=== PATIENT | female | born 2000 ===

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

== ENCOUNTER 2021-02-27 10:59 | Outpatient (REF) | payer OTHER, SELFPAY ==
[2021-02-27 12:50] LABS: COVID-19 Test Negative (Negative)
== END 2021-02-27 11:00 | disposition home or self-care (01) ==
LOC: HO.LAB 10:59
PROVIDERS: Visit Provider Internal Medicine
DX: Z20.822 Contact with and (suspected) exposure to COVID-19 (principal)
CPT/HCPCS: 36415; 87635; C9803

== ENCOUNTER 2021-05-20 02:47 | Emergency (ER) | payer OTHER, SELFPAY ==
[2021-05-20 03:14] VITALS: BP 107/68; PULSE 114; RESP 16; TEMP 36.8; O2SAT 98; BMI 21.7
[2021-05-20 04:58] LABS: Hematocrit 43.4 % (37.0-47.0); Hemoglobin 14.2 g/dl (12.0-16.0); Mean Corpuscular HGB Conc 32.7 g/dl (31.0-35.0); Mean Corpuscular Hemoglobin 29.5 pg (27.0-33.0); Mean Platelet Volume 9.6 fL (9.4-12.3); Platelet Count 385 X10*3/uL (160-400); Red Blood Count 4.82 X10*6/uL (4.20-5.50); Red Cell Distribution Width 12.2 % (11.0-16.0); White Blood Count 15.5 X10*3/uL (4.8-10.8)
[2021-05-20 05:17] LABS: Alanine Aminotransferase 12 U/L (0-31); Albumin Level 4.9 g/dL (3.5-5.0); Alkaline Phosphatase 68 U/L (39-117); Anion Gap 15 (12-20); Aspartate Amino Transferase 19 U/L (5-31); Bilirubin Total 0.9 mg/dL (0.0-1.0); Blood Urea Nitrogen 21 mg/dL (9-16); Calcium 9.6 mg/dL (8.4-10.2); Carbon Dioxide 20 mmol/L (22-29); Chloride 108 mmol/L (96-108); Creatinine Clr Calc Pharmacy 80.6; Estimated Glomerular Filt Rate > 60; Glucose Random 134 mg/dL (60-115); Potassium 3.9 mmol/L (3.3-5.1); Sodium 139 mmol/L (135-145)
[2021-05-20 06:10] LABS: HCG Quantitative < 2 mIU/mL
--- NOTE | 2021-05-20 08:24 | ED_ITS ---
HPI - Nausea/Vomiting/Diarrhea General Chief complaint: Abdominal Pain Stated complaint: Vomiting/Diarrhea Time Seen by Provider: 05/20/21 05:47 Source: patient Mode of arrival: ambulatory Limitations: no limitations History of Present Illness HPI Narrative: 21 y/o female presenting to the ER with acute onset of nausea, vomiting, diarrhea that started around 02:00 this morning. She states she was in her normal state of health yesterday and had a normal dinner. She woke up this morning at 02:00 with extreme nausea and has had several episodes of vomiting and diarrhea since. No blood in her stool or vomit. She has no abdominal pain. She reports some back pain from forceful vomiting. She has no known sick contacts and no one else at home is feeling ill. She denies any fever or chills, shortness of breath, chest pain, abdominal pain, urinary symptoms. She is not sure if she may be . MD elicited complaint: nausea, vomiting and diarrhea Onset (ago): hour(s) (6) Description of vomiting: food contents Description of diarrhea: watery Associated nausea: Yes Associated abdominal pain: No Location of pain: none Exacerbating factors: none Relieving factors: none Associated symptoms: denies other symptoms Related Data Previous Rx's Medication Instructions Recorded meclizine 25 mg tablet 25 mg PO TID PRN #21 tab 09/24/20 ondansetron 4 mg disintegrating 4 mg PO Q8H PRN #5 tab 05/20/21 tablet Allergies Allergy/AdvReac Type Severity Reaction Status Date / Time shrimp [SHRIMP] Allergy Mild RASH Verified 02/17/20 11:10 shrimp Allergy Unknown unknown Uncoded 10/28/19 00:00 Review of Systems Review of Systems: Constitutional: No Fever, No Chills ENT/Mouth: No sore throat, No Rhinorrhea, No Swallowing Difficulty Eyes: No vision changes Cardiovascular: No Chest Pain, No SOB, No Orthopnea, No Edema Respiratory: No Cough, No Sputum, No Wheezing, No dyspnea Gastrointestinal: + Nausea, + Vomiting, + Diarrhea, No abdominal Pain, No Hematochezia, No Melena Genitourinary: No Dysuria, No Urinary Frequency, No Hematuria Musculoskeletal: No joint pain, No Myalgias Skin: No Skin Lesions, No rash Neuro: No Weakness, No Numbness, No Dizziness, No Headache Psych: No Anxiety/Panic, No Depression Heme/Lymph: No Bruising, No Lymphadenopathy Endocrine: No Polyuria, No Polydipsia Gastrointestinal: Gastrointestinal: Reports nausea PMFSH Past Medical History Medical History (Updated 05/20/21 @ 12:09 by NAIN Adler) Asthma Irregular menses Family History Family History Mother HTN (hypertension) Father HTN (hypertension) Social History Social History Alcohol intake: never Advance Directives: No Gender identity: Female Physical Exam Vital Signs: Vital Signs: Last Vital Signs Temp 98.1 F 05/20/21 09:31 Pulse 120 H 05/20/21 09:31 Resp 17 05/20/21 09:31 BP 111/62 05/20/21 09:31 Pulse Ox 100 05/20/21 09:31 BMI result Body Mass Index 21.7 Appearance: Alert. Oriented X3. No acute distress. Eyes: Pupils equal, round and reactive to light. ENT: Pharynx normal. Neck: Normal inspection. Neck supple. CVS: Normal heart rate and rhythm. Pulses normal. Respiratory: No respiratory distress. Breath sounds normal. Abdomen: Soft and nontender. +BS x4 Skin: Skin warm and dry. Normal skin color. Normal skin turgor. No rashes. Extremities: No lower extremity edema. Neuro: Oriented X 3. No motor deficit. No sensory deficit. Course Course Course Narrative: 21-year-old female presents to the ER with 6 hours of nausea, vomiting, diarrhea. She reports 15 episodes of vomiting and diarrhea. She is feeling better at this time, no nausea. She is tolerating sips of Sprite. Her lab workup showing a leukocytosis of 15,500, most likely reactive in the setting of vomiting. She has no abdominal pain. Mild elevation of her BUN, may be slightly dehydrated. Will check UA and U preg. IV fluids and Zofran ordered. Suspect acute gastroenteritis. Will monitor. Reevaluation(s) Reevaluation #1: Patient tolerating p.o.. No presents vomiting this morning. Her urine is negative. Her urinalysis is not indicative of infection. At this time she is stable for discharge home for most likely gastroenteritis. Will send p.r.n. Zofran to her pharmacy. Discussed results and plan with patient who agrees with plan and dispo. Stable for DC. MDM - Nausea/Vomiting/Diarrhea Lab Data Result diagrams: 05/20/21 04:52 05/20/21 04:52 Labs: Lab Results 05/20/21 05/20/21 05/20/21 Range/Units 04:52 04:52 11:58 WBC 15.5 H (4.8-10.8) X10*3/uL RBC 4.82 (4.20-5.50) X10*6/uL Hgb 14.2 (12.0-16.0) g/dl Hct 43.4 (37.0-47.0) % MCV 90.0 (80.0-98.0) fL MCH 29.5 (27.0-33.0) pg MCHC 32.7 (31.0-35.0) g/dl RDW 12.2 (11.0-16.0) % Plt Count 385 (160-400) X10*3/uL MPV 9.6 (9.4-12.3) fL Absolute Nucleated RBC 0.000 (0.0-0.012) X10*3/uL Nucleated RBC % (auto) 0.0 (0.0-0.2) /100WBC Sodium 139 (135-145) mmol/L Potassium 3.9 (3.3-5.1) mmol/L Chloride 108 (96-108) mmol/L Carbon Dioxide 20 L (22-29) mmol/L Anion Gap 15 (12-20) BUN 21 H (9-16) mg/dL Creatinine 0.84 (0.5-1.4) mg/dL Estim Creat Clear Calc 80.6 Estimated GFR > 60 Random Glucose 134 H (60-115) mg/dL Calcium 9.6 (8.4-10.2) mg/dL Total Bilirubin 0.9 (0.0-1.0) mg/dL AST 19 (5-31) U/L ALT 12 (0-31) U/L Alkaline Phosphatase 68 (39-117) U/L Total Protein 8.0 (6.5-8.0) g/dL Albumin 4.9 (3.5-5.0) g/dL Beta HCG, Quant < 2 mIU/mL Urine Color YELLOW Urine Appearance CLEAR Urine pH 5.5 (5.0-8.0) Ur Specific [place] >= 1.030 H (1.005-1.025) Urine Protein NEG (NEG-TRACE) MG/DL Urine Glucose (UA) NEG (NEG) MG/DL Urine Ketones NEG (NEG) MG/DL Urine Blood 1+ H (NEG) Urine Nitrite NEG (NEG) Ur Leukocyte Esterase NEG (NEG) Urine Test (NEGATIVE) 05/20/21 Range/Units 11:58 WBC (4.8-10.8) X10*3/uL RBC (4.20-5.50) X10*6/uL Hgb (12.0-16.0) g/dl Hct (37.0-47.0) % MCV (80.0-98.0) fL MCH (27.0-33.0) pg MCHC (31.0-35.0) g/dl RDW (11.0-16.0) % Plt Count (160-400) X10*3/uL MPV (9.4-12.3) fL Absolute Nucleated RBC (0.0-0.012) X10*3/uL Nucleated RBC % (auto) (0.0-0.2) /100WBC Sodium (135-145) mmol/L Potassium (3.3-5.1) mmol/L Chloride (96-108) mmol/L Carbon Dioxide (22-29) mmol/L Anion Gap (12-20) BUN (9-16) mg/dL Creatinine (0.5-1.4) mg/dL Estim Creat Clear Calc Estimated GFR Random Glucose (60-115) mg/dL Calcium (8.4-10.2) mg/dL Total Bilirubin (0.0-1.0) mg/dL AST (5-31) U/L ALT (0-31) U/L Alkaline Phosphatase (39-117) U/L Total Protein (6.5-8.0) g/dL Albumin (3.5-5.0) g/dL Beta HCG, Quant mIU/mL Urine Color Urine Appearance Urine pH (5.0-8.0) Ur Specific [place] (1.005-1.025) Urine Protein (NEG-TRACE) MG/DL Urine Glucose (UA) (NEG) MG/DL Urine Ketones (NEG) MG/DL Urine Blood (NEG) Urine Nitrite (NEG) Ur Leukocyte Esterase (NEG) Urine Test NEGATIVE (NEGATIVE) Critical Care Time Critical Care Time Critical Care Time: No Discharge Plan Discharge Clinical Impression: Gastroenteritis Patient Disposition: Home, Self-Care Instructions: Gastroenteritis (DC) Additional Instructions: You lab workup today was largely unremarkable. Your urine test was negative for infection and . You most likely have a viral GI bug also known as gastroenteritis. Treatment is supportive care, symptoms usually resolve on their own in 48-72 hours. Recommend rest and plenty of oral hydration. Stick to a bland diet like soup and toast while you are not feeling well. Take the prescribed medication as needed for nausea. Recommend over the counter Pepto Bismol or Imodium for upset stomach and diarrhea. Follow up with your doctor as needed. If you develop new or worsening symptoms call 911 or come back to the ER for further evaluation. Prescriptions: New ondansetron 4 mg tablet,disintegrating 4 mg PO Q8H PRN (Reason: nausea and vomiting) Qty: 5 0RF No Action meclizine 25 mg tablet 25 mg PO TID PRN (Reason: dizziness) Qty: 21 0RF
[2021-05-20] MEDS: 0.9 % Sodium Chloride 1,000 ML 999 ML IVCONT ×2 (08:48→09:51)
[2021-05-20] MEDS: ondansetron HCL 4 MG/2 ML VIAL IVPUSH (08:49)
[2021-05-20] MEDS: Ketorolac Tromethamine 30 MG/ML VIAL IVPUSH (09:15)
[2021-05-20 09:31] VITALS: BP 111/62; PULSE 120; RESP 17; TEMP 36.7; O2SAT 100
--- NOTE | 2021-05-20 09:50 | PC.NURSE ---
nad, no pain or nausea, 2nd liter ns started as pt unable to urinate
[2021-05-20 12:09] LABS: Appearance Urine CLEAR; Color Urine YELLOW; Glucose Urine UA NEG (NEG); Leukocyte Esterase Urine NEG (NEG); Nitrite Urine NEG (NEG); PH 5.5 (5.0-8.0); Specific Gravity - Urine >= 1.030 (1.005-1.025); UACC Culture Trigger NO; Urine Blood 1+ (NEG); Urine Ketones NEG (NEG); Urine Protein NEG (NEG-TRACE)
[2021-05-20 12:11] LABS: UPreg QC Valid YES; Urine Pregnancy NEGATIVE (NEGATIVE)
[2021-05-20 12:24] LABS: WBC Urine 0-2 /HPF (0-4)
[2021-05-20 12:25] LABS: Squamous Epithelial Cell Urine 1+ /LPF
== END 2021-05-20 13:51 | disposition home or self-care (01) ==
PROVIDERS: Physician Assistant; Student in an Organized Health Care Education/Training Program; Emergency Provider Emergency Medicine Emergency Medical Services
DX: K52.9 Noninfective gastroenteritis and colitis, unspecified (principal); R11.2 Nausea with vomiting, unspecified
CPT/HCPCS: 36415; 80053; 81001; 81025; 84702; 85027; 96361; 96374; 96375; 99284; J1885; J2405

== ENCOUNTER 2022-07-01 15:24 | Outpatient (REF) | payer OTHER, SELFPAY ==
[2022-07-01 17:28] LABS: Alanine Aminotransferase 9 U/L (0-31); Albumin Level 4.5 g/dL (3.5-5.0); Alkaline Phosphatase 47 U/L (39-117); Anion Gap 8 (12-20); Aspartate Amino Transferase 16 U/L (5-31); Blood Urea Nitrogen 17 mg/dL (9-16); Calcium 9.7 mg/dL (8.4-10.2); Carbon Dioxide 30 mmol/L (22-29); Chloride 105 mmol/L (96-108); Estimated Glomerular Filt Rate > 60; Glucose Random 90 mg/dL (60-115); Sodium 139 mmol/L (135-145); Total Protein 7.1 g/dL (6.5-8.0)
[2022-07-01 17:44] LABS: TSH reflex Free T4 0.72 uIU/mL (0.32-4.0)
== END 2022-07-01 15:25 | disposition home or self-care (01) ==
LOC: HO.LAB 15:24
PROVIDERS: Visit Provider Nurse Practitioner Family
DX: Z13.29 Encounter for screening for other suspected endocrine disorder (principal); F41.1 Generalized anxiety disorder
CPT/HCPCS: 36415; 80053; 84443

== ENCOUNTER 2022-08-05 14:50 | Outpatient (REF) | payer OTHER, SELFPAY ==
[2022-08-05 15:02] LABS: MANUAL DIFF FLAG NO
[2022-08-05 15:50] LABS: Basophils Absolute Auto 0.1 X10*3/uL (0.0-0.2); Eosinophils Absolute Auto 0.1 X10*3/uL (0.0-0.4); Eosinophils Percent Auto 1.2 % (0-4); Hematocrit 37.5 % (37.0-47.0); Hemoglobin 12.6 g/dl (12.0-16.0); Imm Gran Abs Auto 0.03 X10*3/uL (0.00-0.03); Imm Gran Pct Auto 0.4 % (0.0-0.4); Lymphocytes Percent Auto 36.1 % (20-40); Mean Corpuscular HGB Conc 33.6 g/dl (31.0-35.0); Mean Corpuscular Hemoglobin 30.5 pg (27.0-33.0); Mean Corpuscular Volume 90.8 fL (80.0-98.0); Monocytes Absolute Auto 0.7 X10*3/uL (0.1-1.2); Monocytes Percent Auto 8.7 % (2-11); Neutrophils Absolute Auto 4.3 x10*3/uL (2.0-8.3); Neutrophils Percent Auto 52.6 % (45-73); Platelet Count 409 X10*3/uL (160-400); Red Blood Count 4.13 X10*6/uL (4.20-5.50); Red Cell Distribution Width 11.9 % (11.0-16.0); White Blood Count 8.3 X10*3/uL (4.8-10.8)
[2022-08-05 16:02] LABS: C Reactive Protein < 0.04 mg/dL (< or = 0.50)
[2022-08-05 17:33] LABS: Erythrocyte Sedimentation Rate 3 MM/HR (0-20)
[2022-08-06 04:58] LABS: HBS Num1 0.53 mIU/mL (0-7.99); HBc Num1 0.07 S/CO (0.00-0.79); HBsAGNum1 0.29 S/CO (0.00-0.99); HIV AB/AG Nonreactive (Nonreactive); HIV Num 1 0.07 S/CO (0.00-0.99); Hepatitis B Core Antibody Nonreactive (Nonreactive); Hepatitis B Surface Antigen Negative (Negative); ~HepC Num1 0.09 S/CO (0.00-0.79); ~Hepatitis A Antibody IgM Nonreactive (Nonreactive); ~Hepatitis B Surface Antibody NONREACTIVE (Nonreactive); ~Hepatitis C Antibody Nonreactive (Nonreactive)
== END 2022-08-05 14:51 | disposition home or self-care (01) ==
LOC: HO.LAB 14:50
PROVIDERS: PCP Nurse Practitioner Family; Visit Provider Nurse Practitioner Family
DX: Z11.4 Encounter for screening for human immunodeficiency virus [HIV] (principal); Z13.0 Encounter for screening for diseases of the blood and blood-forming organs and certain disorders involving the immune mechanism; R63.0 Anorexia
CPT/HCPCS: 36415; 85025; 85652; 86140; 86704; 86706; 86709; 86803; 87340; 87389

== ENCOUNTER 2022-10-01 09:51 | Outpatient (AMB) | payer OTHER, SELFPAY ==
[2022-10-01 09:53] VITALS: BP 100/62; BMI 21.5
--- NOTE | 2022-10-01 09:53 | MHC.OFFVIS ---
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 She is sexually active with her partner of 6 years. She has not been contraceptive thing. [facility] and [facility] gave her many patches to use for control and she has them at home and they are not an old prescription and she used to use the patch and liked it and just never bothered continuing with it. She is undecided if she wants to have a baby she at 1 point tells me that she does not think she would like to have a baby right now but if she got she would have the baby and deal with it. 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 She does appear little bit pale she is very alert and animated in her speech. She says that she and she has never had any high blood sugars or anything. She lives 5 minutes away from here. Not having any nurse manager concerns she just wanted to have her 1st Pap smear as she was instructed to do so. [facility] Medical History Asthma Irregular menses Potential exposure to STD Family History Mother HTN (hypertension) Father HTN (hypertension) Social History Housing: Apartment Alcohol intake: never Patient Tobacco Use Status: Never used Tobacco Tobacco use type: Cigarette e-Cigarette/Vaping Use: Never Used service: No Current occupational status: employed Gender identity: Female Cognitive needs: No Hearing needs: No Vision needs: Yes (glasses) Female Reproductive History Menstrual Age of Menarche: 15 Duration of menses: 3-5 days Date of last menstrual period: 09/18/22 control method: none Total pregnancies: 0 Physical Exam Vital Signs: Last Vital Signs BP 100/62 10/01/22 09:53 BMI result Body Mass Index 21.5 Const Other: Patient does appear pale and has circles under her eyes very alert and oriented and responsive to all questions however when she holds up her right hand she does have a slight tremor in it it is cold in this room but she says she is in cold she just does not feel well. Assessment & Plan Assessment & Plan (1) control counseling: Code(s): Z30.09 - Encounter for other general counseling and advice on contraception Plan Discussed patient's intention about conception versus contraception at the initial part of the visit and her periods and desires for this visit she has the control [facility] and she thinks she would like to start them and so I re instructed her on how to start them with her next period and how to use them to by changing the patch every week for 3 weeks and then have the patch off for 1 week and then restarting I also discussed how to make them stick on her skin so she does not have them come off. Given that she does not feel well and she was scheduled for her very 1st Pap smear I recommend that she actually go home and eat something or perhaps pick something up at the cafeteria downstairs and reschedule this annual exam there is not a particular sousa to have her 1st Pap and it can be done any time in the next few weeks or even a month or so. The majority of the visit was spent discussing how she may come to a moment of clarity about whether not she desires a at this time or not and then choosing to act accordingly. It is her choice. We will see her again for her 1st annual exam and Pap I gave her water but I did not have anything to offer her to eat. There was evidence of a slightly elevated blood sugar in a past lab but the repeat random blood sugar was 90. And recent CBC did not reveal anemia. Coding Level of Care Code Est Pt Level 3 (81783) Diagnoses control counseling Z30.09
== END 2022-10-01 11:10 | disposition left against medical advice (07) ==
LOC: HO.HWS 09:51
PROVIDERS: PCP Nurse Practitioner Family; Visit Provider Advanced Practice Midwife
DX: Z30.09 Encounter for other general counseling and advice on contraception (principal)
CPT/HCPCS: 99213

== ENCOUNTER → 2022-10-01 09:51 | Outpatient (BNVA) | payer OTHER, SELFPAY | PROVIDERS: PCP Nurse Practitioner Family; Visit Provider Advanced Practice Midwife | DX: Z30.09 Encounter for other general counseling and advice on contraception (principal) | CPT/HCPCS: 99212 ==

== ENCOUNTER 2022-10-01 18:03 | Emergency (ER) | payer OTHER, SELFPAY ==
[2022-10-01 18:25] VITALS: BP 112/74; PULSE 88; RESP 17; TEMP 35.7; O2SAT 97; BMI 21.4
--- NOTE | 2022-10-01 18:27 | ED.GENADULT ---
HPI - General Adult General Chief complaint: General Medical Stated complaint: vomiting, R side facial pain, chills Time Seen by Provider: 10/01/22 21:00 Source: patient Mode of arrival: ambulatory Limitations: no limitations History of Present Illness HPI narrative: Patient comes to the emergency room complaining of nausea and vomiting that started today. Patient states that she has been able to keep fluids down and no longer is nauseous or vomiting. Patient also complaining of right-sided facial pain the patient denies any trauma, no ear pain, tooth pain, no headache. Related Data Previous Rx's Medication Instructions Recorded ondansetron 4 mg disintegrating 4 mg PO Q6H PRN nausea and 10/01/22 tablet vomiting #14 tabs Allergies Allergy/AdvReac Type Severity Reaction Status Date / Time shrimp [SHRIMP] Allergy Mild RASH Verified 10/01/22 09:56 shrimp Allergy Unknown unknown Uncoded 10/01/22 09:56 Review of Systems Review of Systems: Constitutional : No Weight loss, No Fever, complaining of occasional Chills, No Night Sweats, , complaining of diffuse generalized malaise ENT/Mouth : No Hearing loss, No Ear Pain, No Nasal Congestion, No Sinus Pain, No Hoarseness, No sore throat, No Rhinorrhea, No Swallowing Difficulty Eyes: No Eye Pain, No Swelling, No Redness, No Foreign Body, No Discharge, No Vision Changes Cardiovascular : No Chest Pain, No SOB, No Dyspnea on Exertion, No Orthopnea, No Edema, No Palpitations Respiratory : No Cough, No Sputum, No Wheezing, No Smoke Exposure, No Dyspnea Gastrointestinal : Complaining of nausea and vomiting now, No Diarrhea, No Constipation, No abdominal Pain, No Hematochezia, No Melena Genitourinary : no irregular bleeding, No Dysuria, No Urinary Frequency, No Hematuria, No Urinary Incontinence, No Urgency, No Flank Pain, No Urinary Flow Changes, No Hesitancy Musculoskeletal : No joint pain, No Myalgias, No Joint Swelling Skin : No Skin Lesions, No rash Neuro : No Weakness, No Numbness, No Paresthesias, No Loss of Consciousness, No Dizziness, No Headache Psych : No Anxiety/Panic, No Depression, No SI/HI/AH/VH, No Social Issues, Heme/Lymph: No Bruising, No Bleeding,No Lymphadenopathy Endocrine : No Polyuria, No Polydipsia, No Temperature Intolerance PMFSH Past Medical History Medical History Asthma Irregular menses Potential exposure to STD Family History Family History Mother HTN (hypertension) Father HTN (hypertension) Social History Social History Housing: Apartment Alcohol intake: never Patient Tobacco Use Status: Never used Tobacco Tobacco use type: Cigarette e-Cigarette/Vaping Use: Never Used Advance Directives: No Advance Directives Information Provided: Yes service: No Current occupational status: employed Gender identity: Female Cognitive needs: No Hearing needs: No Vision needs: Yes (glasses) Physical Exam ED Vital Signs: Vital Signs - 24 hr 10/01/22 18:25 Temperature 96.2 F L Pulse Rate 88 Respiratory Rate 17 Blood Pressure 112/74 Pulse Oximetry 97 Oxygen Delivery Method Room Air BMI result Body Mass Index 21.4 Const Other: Appearance: Alert. Oriented X3. No acute distress. Well-appearing Eyes: Pupils equal, round and reactive to light. ENT: Pharynx normal. Normal dentition, no abscesses in the gums or oropharynx Neck: Normal inspection. Neck supple. No lymph nodes noted. No crepitus CVS: Normal heart rate and rhythm. Pulses normal. Normal S1 and S2 Respiratory: No respiratory distress. Breath sounds normal. No Wheezing. No rales Abdomen: Soft and nontender. No rigidity. No distention. Skin: Skin warm and dry. Normal skin color. Normal skin turgor. Extremities: No lower extremity edema. No Lacerations. No Rash Neuro: Oriented X 3. No motor deficit. No sensory deficit. Moving all extremities. No slurred speech. CN 2 through 12 grossly intact Psych: calm, cooperative, normal affect Course Course Course Narrative: This is an RME: Additional HPI, ROS, PE not included below will be deferred to primary provider. This is a 18, with a hx of , presenting to the emergency department with a complaint of right sided headache x 1 week and vomiting 7 times today. Reports chance of . No urinary symptoms. No chest pain, shortness of breath. 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 Plan: Labs, UA COVID, Flu Medications Administered Discontinued Medications Generic Name Dose Route Start Last Admin Trade Name Merlyn PRN Reason Stop Dose Admin Ibuprofen 600 mg 10/01/22 21:45 10/01/22 21:51 Ibuprofen 600 Mg Tablet PO 10/01/22 21:46 600 mg ONCE ONE Administration Medical Decision Making Medical Decision Making [facility] Narrative: -patient's hematology and chemistry are unremarkable -urinalysis pending -patient likely having a viral illness -hCG negative -urinalysis negative Differential Diagnosis Differential Diagnoses: The differential diagnosis associated with the presentation includes (UTI, , viral illness) Lab Data 10/01/22 18:46 10/01/22 18:46 Labs: Lab Results 10/01/22 10/01/22 10/01/22 Range/Units 18:46 18:46 18:46 WBC 9.3 (4.8-10.8) X10*3/uL RBC 4.41 (4.20-5.50) X10*6/uL Hgb 13.3 (12.0-16.0) g/dl Hct 40.2 (37.0-47.0) % MCV 91.2 (80.0-98.0) fL MCH 30.2 (27.0-33.0) pg MCHC 33.1 (31.0-35.0) g/dl RDW 11.7 (11.0-16.0) % Plt Count 354 (160-400) X10*3/uL MPV 9.5 (9.4-12.3) fL Immature Gran % (Auto) 0.3 (0.0-0.4) % Neut % (Auto) 66.7 (45-73) % Lymph % (Auto) 25.4 (20-40) % Pierce % (Auto) 6.8 (2-11) % Eos % (Auto) 0.3 (0-4) % Baso % (Auto) 0.5 (0-2) % Lymph # (Auto) 2.4 (1.2-4.9) X10*3/uL Pierce # (Auto) 0.6 (0.1-1.2) X10*3/uL Eos # (Auto) 0.0 (0.0-0.4) X10*3/uL Baso # (Auto) 0.1 (0.0-0.2) X10*3/uL Abs Immat Gran (auto) 0.03 (0.00-0.03) X10*3/uL Absolute Neuts (auto) 6.2 (2.0-8.3) x10*3/uL Absolute Nucleated RBC 0.000 (0.0-0.012) X10*3/uL Nucleated RBC % (auto) 0.0 (0.0-0.2) /100WBC Sodium 139 (135-145) mmol/L Potassium 4.0 (3.3-5.1) mmol/L Chloride 105 (96-108) mmol/L Carbon Dioxide 24 (22-29) mmol/L Anion Gap 14 (12-20) BUN 13 (9-16) mg/dL Creatinine 0.64 (0.5-1.4) mg/dL Estim Creat Clear Calc 104.9 Estimated GFR > 60 Random Glucose 118 H (60-115) mg/dL Calcium 10.0 (8.4-10.2) mg/dL Magnesium 1.8 (1.6-2.6) mg/dL Total Bilirubin 1.0 (0.0-1.0) mg/dL Direct Bilirubin 0.3 (0.0-0.5) mg/dL AST 19 (5-31) U/L ALT 12 (0-31) U/L Alkaline Phosphatase 49 (39-117) U/L Total Protein 7.7 (6.5-8.0) g/dL Albumin 4.6 (3.5-5.0) g/dL Beta HCG, Quant < 2 mIU/mL Urine Color Urine Appearance Urine pH (5.0-9.0) Ur Specific [place] (1.005-1.025) Urine Protein (Neg-Trace) mg/dL Urine Glucose (UA) (Negative) mg/dL Urine Ketones (Negative) mg/dL Urine Blood (Negative) Urine Nitrite (Negative) Ur Leukocyte Esterase (Negative) Urine Test (NEGATIVE) COVID-19 (JOHN) (Negative) COVID-19 Clin Com Influenza Type A (JOSE RAUL) (Negative) Influenza Type B (JOSE RAUL) (Negative) Influenza A & B Note 10/01/22 10/01/22 10/01/22 Range/Units 18:46 18:47 21:14 WBC (4.8-10.8) X10*3/uL RBC (4.20-5.50) X10*6/uL Hgb (12.0-16.0) g/dl Hct (37.0-47.0) % MCV (80.0-98.0) fL MCH (27.0-33.0) pg MCHC (31.0-35.0) g/dl RDW (11.0-16.0) % Plt Count (160-400) X10*3/uL MPV (9.4-12.3) fL Immature Gran % (Auto) (0.0-0.4) % Neut % (Auto) (45-73) % Lymph % (Auto) (20-40) % Pierce % (Auto) (2-11) % Eos % (Auto) (0-4) % Baso % (Auto) (0-2) % Lymph # (Auto) (1.2-4.9) X10*3/uL Pierce # (Auto) (0.1-1.2) X10*3/uL Eos # (Auto) (0.0-0.4) X10*3/uL Baso # (Auto) (0.0-0.2) X10*3/uL Abs Immat Gran (auto) (0.00-0.03) X10*3/uL Absolute Neuts (auto) (2.0-8.3) x10*3/uL Absolute Nucleated RBC (0.0-0.012) X10*3/uL Nucleated RBC % (auto) (0.0-0.2) /100WBC Sodium (135-145) mmol/L Potassium (3.3-5.1) mmol/L Chloride (96-108) mmol/L Carbon Dioxide (22-29) mmol/L Anion Gap (12-20) BUN (9-16) mg/dL Creatinine (0.5-1.4) mg/dL Estim Creat Clear Calc Estimated GFR Random Glucose (60-115) mg/dL Calcium (8.4-10.2) mg/dL Magnesium (1.6-2.6) mg/dL Total Bilirubin (0.0-1.0) mg/dL Direct Bilirubin (0.0-0.5) mg/dL AST (5-31) U/L ALT (0-31) U/L Alkaline Phosphatase (39-117) U/L Total Protein (6.5-8.0) g/dL Albumin (3.5-5.0) g/dL Beta HCG, Quant mIU/mL Urine Color Yellow Urine Appearance Cloudy Urine pH 7.0 (5.0-9.0) Ur Specific [place] 1.020 (1.005-1.025) Urine Protein Negative (Neg-Trace) mg/dL Urine Glucose (UA) Negative (Negative) mg/dL Urine Ketones 15 (Negative) mg/dL Urine Blood Negative (Negative) Urine Nitrite Negative (Negative) Ur Leukocyte Esterase Negative (Negative) Urine Test (NEGATIVE) COVID-19 (JOHN) Negative (Negative) COVID-19 Clin Com See Note Influenza Type A (JOSE RAUL) Negative (Negative) Influenza Type B (JOSE RAUL) Negative (Negative) Influenza A & B Note See Note 10/01/22 Range/Units 21:14 WBC (4.8-10.8) X10*3/uL RBC (4.20-5.50) X10*6/uL Hgb (12.0-16.0) g/dl Hct (37.0-47.0) % MCV (80.0-98.0) fL MCH (27.0-33.0) pg MCHC (31.0-35.0) g/dl RDW (11.0-16.0) % Plt Count (160-400) X10*3/uL MPV (9.4-12.3) fL Immature Gran % (Auto) (0.0-0.4) % Neut % (Auto) (45-73) % Lymph % (Auto) (20-40) % Pierce % (Auto) (2-11) % Eos % (Auto) (0-4) % Baso % (Auto) (0-2) % Lymph # (Auto) (1.2-4.9) X10*3/uL Pierce # (Auto) (0.1-1.2) X10*3/uL Eos # (Auto) (0.0-0.4) X10*3/uL Baso # (Auto) (0.0-0.2) X10*3/uL Abs Immat Gran (auto) (0.00-0.03) X10*3/uL Absolute Neuts (auto) (2.0-8.3) x10*3/uL Absolute Nucleated RBC (0.0-0.012) X10*3/uL Nucleated RBC % (auto) (0.0-0.2) /100WBC Sodium (135-145) mmol/L Potassium (3.3-5.1) mmol/L Chloride (96-108) mmol/L Carbon Dioxide (22-29) mmol/L Anion Gap (12-20) BUN (9-16) mg/dL Creatinine (0.5-1.4) mg/dL Estim Creat Clear Calc Estimated GFR Random Glucose (60-115) mg/dL Calcium (8.4-10.2) mg/dL Magnesium (1.6-2.6) mg/dL Total Bilirubin (0.0-1.0) mg/dL Direct Bilirubin (0.0-0.5) mg/dL AST (5-31) U/L ALT (0-31) U/L Alkaline Phosphatase (39-117) U/L Total Protein (6.5-8.0) g/dL Albumin (3.5-5.0) g/dL Beta HCG, Quant mIU/mL Urine Color Urine Appearance Urine pH (5.0-9.0) Ur Specific [place] (1.005-1.025) Urine Protein (Neg-Trace) mg/dL Urine Glucose (UA) (Negative) mg/dL Urine Ketones (Negative) mg/dL Urine Blood (Negative) Urine Nitrite (Negative) Ur Leukocyte Esterase (Negative) Urine Test NEGATIVE (NEGATIVE) COVID-19 (JOHN) (Negative) COVID-19 Clin Com Influenza Type A (JOSE RAUL) (Negative) Influenza Type B (JOSE RAUL) (Negative) Influenza A & B Note Discharge Plan Discharge Clinical Impression: Viral illness, Nausea & vomiting Patient Disposition: Home, Self-Care Instructions: Viral Syndrome (ED) Additional Instructions: Please follow-up with your primary care physician tomorrow. If you have any worsening or new symptoms, please return to the emergency room or call 911 Prescriptions: New ondansetron 4 mg tablet,disintegrating 4 mg PO Q6H PRN (Reason: nausea and vomiting) Qty: 14 0RF Stand Alone Forms: Work/School Release Interventions: ED Discharge Assessment Last Done: 10/01/22 22:59 Discharge Date/Time: 10/01/22 23:00
[2022-10-01 18:51] LABS: MANUAL DIFF FLAG NO
[2022-10-01 18:53] LABS: Basophils Absolute Auto 0.1 X10*3/uL (0.0-0.2); Basophils Percent Auto 0.5 % (0-2); Eosinophils Percent Auto 0.3 % (0-4); Hematocrit 40.2 % (37.0-47.0); Hemoglobin 13.3 g/dl (12.0-16.0); Imm Gran Abs Auto 0.03 X10*3/uL (0.00-0.03); Imm Gran Pct Auto 0.3 % (0.0-0.4); Lymphocytes Absolute Auto 2.4 X10*3/uL (1.2-4.9); Lymphocytes Percent Auto 25.4 % (20-40); Mean Corpuscular HGB Conc 33.1 g/dl (31.0-35.0); Mean Corpuscular Hemoglobin 30.2 pg (27.0-33.0); Mean Corpuscular Volume 91.2 fL (80.0-98.0); Mean Platelet Volume 9.5 fL (9.4-12.3); Monocytes Absolute Auto 0.6 X10*3/uL (0.1-1.2); Monocytes Percent Auto 6.8 % (2-11); Neutrophils Absolute Auto 6.2 x10*3/uL (2.0-8.3); Neutrophils Percent Auto 66.7 % (45-73); Platelet Count 354 X10*3/uL (160-400); Red Blood Count 4.41 X10*6/uL (4.20-5.50); Red Cell Distribution Width 11.7 % (11.0-16.0); White Blood Count 9.3 X10*3/uL (4.8-10.8)
[2022-10-01 19:11] LABS: Alanine Aminotransferase 12 U/L (0-31); Albumin Level 4.6 g/dL (3.5-5.0); Alkaline Phosphatase 49 U/L (39-117); Anion Gap 14 (12-20); Aspartate Amino Transferase 19 U/L (5-31); Bilirubin Direct 0.3 mg/dL (0.0-0.5); Blood Urea Nitrogen 13 mg/dL (9-16); Carbon Dioxide 24 mmol/L (22-29); Chloride 105 mmol/L (96-108); Creatinine Clr Calc Pharmacy 104.9; Estimated Glomerular Filt Rate > 60; Glucose Random 118 mg/dL (60-115); Magnesium 1.8 mg/dL (1.6-2.6); Sodium 139 mmol/L (135-145); Total Protein 7.7 g/dL (6.5-8.0)
[2022-10-01 19:13] LABS: COVID-19 Test Negative (Negative); IDNOW Serial# 08D9AD1C
[2022-10-01 19:13] LABS: IDNOW Serial# BCCEAD1C; Influenza A Negative (Negative); Influenza B2 Negative (Negative)
[2022-10-01 19:19] LABS: HCG Quantitative < 2 mIU/mL
[2022-10-01 21:27] LABS: Appearance Urine Cloudy; Color Urine Yellow; Glucose Urine UA Negative (Negative); Leukocyte Esterase Urine Negative (Negative); Nitrite Urine Negative (Negative); Urine Blood Negative (Negative); Urine Ketones 15 mg/dL (Negative); Urine Protein Negative (Neg-Trace)
[2022-10-01 21:29] LABS: UPreg QC Valid YES; Urine Pregnancy NEGATIVE (NEGATIVE)
[2022-10-01] MEDS: Ibuprofen 600 MG TABLET PO (21:51)
--- NOTE | 2022-10-01 21:54 | PC.NURSE ---
pt medicated per MAr for 9.510 right sided face pain
--- NOTE | 2022-10-01 22:59 | PC.NURSE ---
pt reports pain is much better.
[2022-10-02 12:31] LABS: CT PCR NOT DETECTED (Not Detect.); NG PCR NOT DETECTED (Not Detect.)
== END 2022-10-01 23:00 | disposition home or self-care (01) ==
PROVIDERS: Physician Assistant Medical; Emergency Provider Emergency Medicine; PCP Nurse Practitioner Family
DX: B34.9 Viral infection, unspecified (principal); R11.2 Nausea with vomiting, unspecified; Z20.822 Contact with and (suspected) exposure to COVID-19; Z20.828 Contact with and (suspected) exposure to other viral communicable diseases; Z79.899 Other long term (current) drug therapy
CPT/HCPCS: 0353U; 80048; 80076; 81003; 81025; 83735; 84702; 85025; 87150; 87502; 87635; 99283

== ENCOUNTER 2022-10-06 07:09 | Outpatient (AMB) | payer OTHER, SELFPAY ==
[2022-10-06 07:13] VITALS: BP 104/58; PULSE 75; O2SAT 98; BMI 21.3
--- NOTE | 2022-10-06 07:13 | A.OFFPC_ITS ---
Vital Signs 10/06/22 07:13 Height 5 ft 1 in Weight 113 lb BMI 21.3 BP 104/58 L Blood Pressure Location Lt brachial Position Sitting Pulse 75 Pulse Source Pulse Oximeter Pulse Oximetry (%) 98 Oxygen Delivery Method Room Air Intake Visit Reasons: 10/01/22 [facility] pain on right side of face Machine Maintenance Required: No Accompanied by: Self / Same As Patient Allergies shrimp [SHRIMP] Allergy (Mild, Verified 10/06/22 07:54) RASH shrimp Allergy (Unknown, Uncoded 10/06/22 07:54) unknown Medication List - Last Reconciled 10/06/22 by Beth Roque MD No Known Home Meds Tobacco use date assessed: 08/05/22 Dental Screening Dental Screen Date: 10/06/22 Did you have a dental visit in the last 12 months?: Yes Did you have a dental problem in the last 6 months where you did not have access to dental care?: No Was dental information given to patient?: Patient has dentist HPI HPI Comments History of Present Illness Details This is a 22-year-old female that comes today as ER discharge follow-up with discharge date 10/01/2022 due to facial pain in the right side of the face associated with nausea and vomiting that happened the day that she went to the hospital and resolve with ibuprofen and ondansetron for nausea. 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 Facial pain associated with nausea and vomiting started this morning again. No sinus tenderness. She said that when she was 3 years old a wall fell in her right side of the face. She has no facial deformities. [facility] Medical History Asthma Irregular menses Potential exposure to STD Family History Mother HTN (hypertension) Father HTN (hypertension) Social History Housing: Apartment Alcohol intake: never Patient Tobacco Use Status: Never used Tobacco Tobacco use type: Cigarette e-Cigarette/Vaping Use: Never Used service: No Current occupational status: employed Gender identity: Female Cognitive needs: No Hearing needs: No Vision needs: Yes (glasses) Female Reproductive History Menstrual Age of Menarche: 15 Questionnaire PHQ-9 Over the last 2 weeks, how often have you been bothered by any of the following problems? 1. Little interest or pleasure in doing things: not at all 2. Feeling down, depressed, or hopeless: not at all 3. Trouble falling or staying asleep, or sleeping too much: not at all 4. Feeling tired or having little energy: not at all 5. Poor appetite or overeating: not at all 6. Feeling bad about yourself - or that you are a failure or have let yourself or your family down: not at all 7. Trouble concentrating on things, such as reading the newspaper or watching television: not at all 8. Moving or speaking so slowly that other people could have noticed. Or the opposite - being so fidgety or restless that you have been moving around a lot more than usual: not at all 9. Thoughts that you would be better off or of hurting yourself in some way: not at all Total score: 0 Depression Screening Interpretation: Negative 73321 - PHQ-9 Billing: Yes Source: Developed by Drs. Shaun Wynne, Claire Sutton, Santi Berumen and colleagues, with an educational michael from [employer]. Thrive Questionnaire Date Thrive assessed: 08/05/22 AUDIT C Alcohol Use Questionnaire (AUDIT-C) 1. How often do you have a drink containing alcohol?: Never 3. How often do you have six or more drinks on one occasion?: Never Total Score: 0 AMBAR-7 AMB Questionnaire AMBAR-7 Date AMBAR - 7 assessed: 08/05/22 Source: Developed by Drs. Shaun Wynne, Claire Sutton, Santi Berumen and colleagues, with an educational michael from [employer]. Review of Systems Const All systems reviewed & are unremarkable except as noted in HPI and below Reports headache(s) Eyes Reports no additional complaints, Denies change in vision and Denies other v isual disturbances ENT Reports headache(s) Card Denies chest pain at rest, Denies chest pain with activity, Denies edema, Denies irregular heart rhythm, Denies claudication, Denies dyspnea, Denies dyspnea on exertion, Denies orthopnea, Denies paroxysmal nocturnal dyspnea and Denies slow heart rate Resp Denies cough, Denies dyspnea and Denies dyspnea on exertion GI Denies abdominal pain, Denies change in bowel habits, Denies excessive flatus, Reports nausea and Reports vomiting Denies urinary incontinence, Denies urinary hesitancy and Denies urinary urgency Musc Denies abnormal gait, Denies atrophy, Denies deformity and Denies limited range of motion Skin/Breast Denies bleeding lesions, Denies changing lesions and Denies rash Neuro Denies abnormal gait, Reports headache(s) and Denies lack of coordination Physical exam (Primary Care) Vital Signs: Last Vital Signs Pulse 75 10/06/22 07:13 BP 104/58 L 10/06/22 07:13 Pulse Ox 98 10/06/22 07:13 Oxygen Delivery Method Room Air 10/06/22 07:13 BMI result Body Mass Index 21.3 Tobacco/Smoking Status: Tobacco use Status Tobacco use date assessed 08/05/22 10/06/22 07:18 Patient Tobacco Use Status Never used Tobacco 10/06/22 07:18 Tobacco use type Cigarette 10/06/22 07:18 e-Cigarette/Vaping Use Never Used 10/06/22 07:18 PHQ-9: PHQ-9 Score PHQ-9: Total score 0 10/06/22 08:36 Depression Screening Interpretation: Negative Thrive Assessment: Date of Thrive Assessment Date Thrive assessed 08/05/22 10/06/22 07:18 Eyes General: appearance normal, both eyes and all related structures Eyelids: Yes eyelids normal Conjunctivae: conjunctivae normal Neck Neck: Yes normal visual inspection and Yes supple Resp Effort & Inspection: normal respiratory effort Auscultation: clear to auscultation bilaterally Cardio Jugular venous distension: no JVD Rate: regular rate Rhythm: regular rhythm Heart sounds: S1 normal heart sound present and S2 normal heart sound present Extrem General: Yes full ROM Assessment and Plan Assessment & Plan (1) Hospital discharge follow-up: Code(s): Z09 - Encounter for follow-up examination after completed treatment for conditions other than malignant neoplasm Plan: Discharge date 10/01/2022 due to facial pain associated with nausea and vomiting. Resolve with ibuprofen and ondansetron. Restarted today. Will give naproxen and sumatriptan for facial pain. (2) Facial pain: Code(s): R51.9 - Headache, unspecified Plan: X-ray of sinus ordered. Start naproxen and sumatriptan (3) Nausea & vomiting: Code(s): R11.2 - Nausea with vomiting, unspecified Plan: Continue ondansetron as needed Orders: Orders XR sinus min 3V Today R51.9 - Headache, unspecified Medications: New sumatriptan succinate do not exceed 8 doses per 24 hrs 25 mg PO Q2-4H 30 days PRN 9 tabs 2RF migraine headache naproxen 500 mg PO BID 7 days 14 tabs 0RF ondansetron 4 mg PO Q8H 5 days PRN 10 tabs 0RF nausea and vomiting Coding Level of Care Code TCM Mod MDM <= 7 Days Diagnoses Hospital discharge follow-up Z09 Facial pain R51.9 Nausea & vomiting R11.2 Time Spent (min) 19
== END 2022-10-06 08:07 | disposition home or self-care (01) ==
PROVIDERS: PCP Nurse Practitioner Family; Visit Provider Internal Medicine
DX: R51.9 Headache, unspecified (principal); R11.2 Nausea with vomiting, unspecified; Z09 Encounter for follow-up examination after completed treatment for conditions other than malignant neoplasm
CPT/HCPCS: 99214

== ENCOUNTER 2022-10-06 08:16 | Outpatient (REF) | payer OTHER, SELFPAY ==
--- NOTE | ~2022-10-06 | XR_ITS ---
EXAMINATION: XR SINUSES CLINICAL INFORMATION: Headache COMPARISON: None available. TECHNIQUE: 3 views of the sinuses were obtained. FINDINGS: Paranasal sinuses appear clear without air-fluid levels. No fractures are identified. No radiodense foreign bodies. Mastoid air cells appear normal. XR/XR sinus min 3V IMPRESSION: Unremarkable examination.
== END 2022-10-06 08:17 | disposition home or self-care (01) ==
LOC: HO.XRAY 08:16
PROVIDERS: PCP Nurse Practitioner Family; Visit Provider Internal Medicine
DX: R51.9 Headache, unspecified (principal)
CPT/HCPCS: 70220

== ENCOUNTER 2022-10-16 13:41 | Outpatient (AMB) | payer OTHER, SELFPAY ==
[2022-10-16 13:43] VITALS: BP 98/62; PULSE 81; O2SAT 99; BMI 21.1
--- NOTE | 2022-10-16 13:43 | MHC.PC.OV ---
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 Accompanied by: Self / Same As Patient Allergies shrimp [SHRIMP] Allergy (Mild, Verified 10/16/22 13:43) RASH shrimp Allergy (Unknown, Uncoded 10/06/22 07:54) unknown Tobacco use date assessed: 10/16/22 Dental Screening Dental Screen Date: 10/16/22 Did you have a dental visit in the last 12 months?: Yes Did you have a dental problem in the last 6 months where you did not have access to dental care?: No Was dental information given to patient?: Patient has dentist HPI HPI Comments History of Present Illness Details 22-year-old female past medical history significant for generalized anxiety and facial pain. Patient last seen 2 weeks ago for hospital discharge follow-up was started naproxen and sumtriptan for nausea and facial pain. Patient presents today for follow up visit. Patient reports continues to have intermittent right sided facial pressure, patient states take her naproxene and sumatriptan and sometimes it helps and sometimes it doesn't alleviate her pain. Denies pain at this time. Patient advised if pain re-occurs to follow up for further evaluation. He in the buspirone for anxiety, denying any feelings of anxiety at this time. Does not feel the need for any medication or referral to counseling. [facility] Medical History Asthma Irregular menses Potential exposure to STD Family History Mother HTN (hypertension) Father HTN (hypertension) Social History Housing: Apartment Alcohol intake: never Patient Tobacco Use Status: Never used Tobacco Tobacco use type: Cigarette e-Cigarette/Vaping Use: Never Used service: No Current occupational status: employed Gender identity: Female Cognitive needs: No Hearing needs: No Vision needs: Yes (glasses) Female Reproductive History Menstrual Age of Menarche: 15 Questionnaire PHQ-9 Over the last 2 weeks, how often have you been bothered by any of the following problems? 1. Little interest or pleasure in doing things: not at all 2. Feeling down, depressed, or hopeless: not at all 3. Trouble falling or staying asleep, or sleeping too much: not at all 4. Feeling tired or having little energy: not at all 5. Poor appetite or overeating: not at all 6. Feeling bad about yourself - or that you are a failure or have let yourself or your family down: not at all 7. Trouble concentrating on things, such as reading the newspaper or watching television: not at all 8. Moving or speaking so slowly that other people could have noticed. Or the opposite - being so fidgety or restless that you have been moving around a lot more than usual: not at all 9. Thoughts that you would be better off or of hurting yourself in some way: not at all Total score: 0 Depression Screening Interpretation: Negative 42115 - PHQ-9 Billing: Yes Source: Developed by Drs. Shaun Wynne, Claire Sutton, Santi Berumen and colleagues, with an educational michael from [employer]. Thrive Questionnaire Date Thrive assessed: 10/16/22 I am a: Patient What is your living situation today?: I have a steady place to live Within the past 12 months, did the food you bought not last and you didn't have the money to get more?: Never true Within the past 12 months, did you worry whether your food would run out before you got money to buy more?: Never true Do you have trouble paying for medicines?: No Do you have trouble getting transportation to medical appointments?: No Do you have trouble paying your heating and electricity bill?: No Do you have trouble taking care of your child, family member or friend?: No Do you have trouble with day-to-day activities such as bathing, preparing meals, shopping, managing finances, etc.?: No Are you currently unemployed and looking for a job?: No Are you interested in more education?: No Please select the resources that you would like help with: None Currently or been in a relationship where the following occur: no concerns reported AUDIT C Alcohol Use Questionnaire (AUDIT-C) 1. How often do you have a drink containing alcohol?: Never 3. How often do you have six or more drinks on one occasion?: Never Total Score: 0 AMBAR-7 AMB Questionnaire AMBAR-7 Date AMBAR - 7 assessed: 10/16/22 Feeling nervous, anxious, or on edge: 0 = Not at all Not being able to stop or control worryin = Not at all Worrying too much about different things: 0 = Not at all Trouble relaxin = Not at all Being so restless that it is hard to sit still: 0 = Not at all Becoming easily annoyed or irritable: 0 = Not at all Feeling afraid as if something awful might happen: 0 = Not at all Total AMBAR-7 score (0-4 normal; 5-9 mild; 10-14 moderate; 15-21 severe): 0 Source: Developed by Drs. Shaun Wynne, Claire Sutton, Santi Berumen and colleagues, with an educational michael from [employer]. Review of Systems Const Denies chills, Denies fatigue, Denies fever(s) and Denies poor appetite Eyes Denies no additional complaints ENT Reports Normal hearing present Card Denies chest pain, Denies syncope, Denies rapid heart rate and Denies dyspnea Resp Denies cough and Denies dyspnea GI Denies change in stool character, Denies constipation, Denies diarrhea, Denies nausea and Denies vomiting Denies urinary frequency, Denies dysuria and Denies urinary urgency Neuro Reports Normal hearing present, Denies confusion and Denies syncope Psych Denies confusion Endo Denies fatigue Physical exam (Primary Care) Vital Signs: Oxygen Delivery Method Room Air 10/16/22 13:43 BMI result Body Mass Index 21.1 Tobacco/Smoking Status: Tobacco use Status Tobacco use date assessed 08/05/22 10/06/22 07:18 Patient Tobacco Use Status Never used Tobacco 10/06/22 07:18 Tobacco use type Cigarette 10/06/22 07:18 e-Cigarette/Vaping Use Never Used 10/06/22 07:18 Depression Screening Interpretation: Negative Thrive Assessment: Date of Thrive Assessment Date Thrive assessed 08/05/22 10/06/22 07:18 Currently or been in a relationship where the following occur: no concerns reported Const General: No confusion Orientation/consciousness: No confusion HENMT Head: Yes normocephalic and Yes atraumatic General nose exam: Normal external nose present and Normal nasal mucous membranes and turbinates present Face and sinus: Yes normal facial exam and Yes sinuses nontender Eyes Conjunctivae: conjunctivae normal Sclerae: sclerae normal Pupils: Equal, round and reactive pupils present and Pupils normal by confrontation EOM: EOMs intact bilaterally Direct Ophthalmoscopy: normal light reflex Neck Neck: Yes no lymphadenopathy and Yes supple Thyroid: Thyroid normal Chest Chest palpation & inspection: normal inspection of the chest Resp Effort & Inspection: normal respiratory effort Auscultation: clear to auscultation bilaterally, no crackles, no rhonchi and no wheezes Cardio Rate: regular rate Rhythm: regular rhythm Heart sounds: S1 normal heart sound present and S2 normal heart sound present GI Inspection: Yes normal to inspection Neuro General: No confusion Cranial nerves: Yes Equal, round and reactive pupils present and Yes Normal hearing present Extrem General: No edema Assessment and Plan Assessment & Plan (1) Facial pain: Code(s): R51.9 - Headache, unspecified Plan: Continues naproxen and sumatriptan as needed for facial pain. (2) Generalized anxiety disorder: Code(s): F41.1 - Generalized anxiety disorder Plan: Patient discontinued buspirone and does not feel the need to be on medication at this time. Plan Follow up in 6 months or sooner if needed. Coding Level of Care Code Est Pt Level 3 (32796) Diagnoses Facial pain R51.9 Generalized anxiety disorder F41.1
== END 2022-10-16 14:13 | disposition home or self-care (01) ==
PROVIDERS: PCP Nurse Practitioner Family; Visit Provider Nurse Practitioner Family
DX: R51.9 Headache, unspecified (principal); F41.1 Generalized anxiety disorder
CPT/HCPCS: 99213

== ENCOUNTER 2022-12-26 09:43 | Outpatient (AMB) | payer OTHER, SELFPAY ==
[2022-12-26 09:45] VITALS: BP 102/64; BMI 20.2
--- NOTE | 2022-12-26 09:45 | MHC.OFFVIS ---
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 Intake Note: Having pain in her ovaries [employer] Clerk Required: No Information Interpreted: non-clinical & clinical Drafter Seismograph: Drafter Seismograph Present (Imelda) Allergies shrimp [SHRIMP] Allergy (Mild, Verified 12/26/22 09:47) RASH shrimp Allergy (Unknown, Uncoded 12/26/22 09:47) unknown Medication List - Last Reconciled 12/26/22 by Cici Romero CNM medroxyprogesterone (Depo-SubQ provera 104) 104 mg subcut [id number] Is last menstrual period known: No (no menses DEPO) Post menopausal: No HPI 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 She had come previously but was shaking and not feeling well after having worked all night. She went home after that visit and slept and felt worse when she woke up so her father brought her to the emergency room and because she was having facial symptoms on half of her face they brought her right in and worked her up to be sure she did not have a stroke and never did really figure out what the problem was. She has had follow-up visits with her primary care provider as well and nothing has been found but she feels a whole lot better. Since then and after the discussion about deciding whether not she wished to open herself up for she decided that she did not want to get at this time [facility] she was there on December 03 and got her 1st shot but her. Was due the next day but it never came. She says they told her T do a test again in a couple of weeks and she did and was negative and they told her to use condoms for a week. They told her that the next Depo is due from February 16 to March 02. (With the optimal 12 week date 02/25/2023--mo'b); She feels good on the Depo though she has was surprised that it made her not have a. So quickly previously when she had gone on the Depo she would get her. The 1st month and then light the 2nd month and then by the 3rd month not get her. So she was surprised when it did not come so quickly. We have discussed this to here today and we will repeat a test here at the end of the visit for confirmation. She occasionally has some pains in her ovaries so she wanted to mention that. She is not working today and did not work last night so she is going to be going to [facility] today to investigate the nursing program. 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 She has plans to go back to the gym. She is open to getting her 1st Pap smear and testing for STIs today though declines blood work. She is [facility] because it works [facility] more convenient for her and is easier. [facility] Medical History (Updated 12/26/22 @ 10:39 by Cici Romero CNM) Asthma Potential exposure to STD Irregular menses Family History Mother HTN (hypertension) Father HTN (hypertension) Social History Housing: Apartment Alcohol intake: never Patient Tobacco Use Status: Never used Tobacco Tobacco use type: Cigarette e-Cigarette/Vaping Use: Never Used service: No Current occupational status: employed Gender identity: Female Cognitive needs: No Hearing needs: No Vision needs: Yes (glasses) Female Reproductive History Menstrual Age of Menarche: 15 Duration of menses: 3-5 days control method: progesterone injection Total pregnancies: 0 Physical Exam Vital Signs: Last Vital Signs BP 102/64 12/26/22 09:45 BMI result Body Mass Index 20.2 Const General: healthy appearing, comfortable, no acute distress, well developed and alert Nutritional Appearance: average body habitus and thin Orientation/consciousness: patient oriented x3 Limitations: no limitations HEENT Head: Yes normocephalic Neck Neck: Yes normal visual inspection Thyroid: Thyroid normal Chest Chest palpation & inspection: normal inspection of the chest Breast/axilla inspection: normal inspection of the breasts and normal inspection of the axillae Breast/axilla palpation: normal palpation of the breasts and normal palpation of the axillae Resp Effort & Inspection: normal respiratory effort GI Inspection: Yes normal to inspection, No Abdominal wall edema and No distended Palpation (GI): Soft to palpation and nontender Other: External exam within normal limits vagina pink and moist cervix is pink small nulliparous healthy appearing with scant white discharge. Uterus is small midposition mobile nontender adnexa are small nontender and both are palpable secondary to patient's thin frame good tone with Kegel. General: Yes bladder normal to palpation External Female Exam: normal external appearance and normal appearance of the urethra Speculum Exam - Vagina: normal appearance of the vagina, normal palpation and normal vaginal discharge Speculum Exam - Cervix: normal appearance of the cervix, normal palpation and nontender Bimanual exam- vagina & uterus: normal bimanual exam, normal palpation, uterine size normal, bladder normal to palpation, consistency normal, normal palpation, uterine mobility normal, uterine shape normal, No Cervical tenderness present, non-tender and no cervical motion tenderness Bimanual Exam- Adnexa, other: normal adnexae, no masses, normal and No adnexal tenderness Neuro General: patient oriented x3 Assessment & Plan Assessment & Plan (1) Potential exposure to STD: Code(s): Z20.2 - Contact with and (suspected) exposure to infections with a predominantly sexual mode of transmission (2) control counseling: Code(s): Z30.09 - Encounter for other general counseling and advice on contraception (3) Well woman exam with routine gynecological exam: Code(s): Z01.419 - Encounter for gynecological examination (general) (routine) without abnormal findings (4) Cervical cancer screening: Comment: first pap 12/26/22. 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 She had come previously but was shaking and not feeling well after having worked all night. She went home after that visit and slept and felt worse when she woke up so her father brought her to the emergency room and because she was having facial symptoms on half of her face they brought her right in and worked her up to be sure she did not have a stroke and never did really figure out what the problem was. She has had follow-up visits with her primary care provider as well and nothing has been found but she feels a whole lot better. Since then and after the discussion about deciding whether not she wished to open herself up for she decided that she did not want to get at this time [facility] she was there on December 03 and got her 1st shot but her. Was due the next day but it never came. She says they told her T do a test again in a couple of weeks and she did and was negative and they told her to use condoms for a week. They told her that the next Depo is due from February 16 to March 02. (With the optimal 12 week date 02/25/2023--mo'b); She feels good on the Depo though she has was surprised that it made her not have a. So quickly previously when she had gone on the Depo she would get her. The 1st month and then light the 2nd month and then by the 3rd month not get her. So she was surprised when it did not come so quickly. We have discussed this to here today and we will repeat a test here at the end of the visit for confirmation. She occasionally has some pains in her ovaries so she wanted to mention that. She is not working today and did not work last night so she is going to be going to [facility] today to investigate the nursing program. 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 She has plans to go back to the gym. She is open to getting her 1st Pap smear and testing for STIs today though declines blood work. She is happy [facility] because it works [facility] more convenient for her and is easier. -----Discussed in this visit the following: healthy balanced diet, regular and consistent exercise, getting recommended health screens, doing the best she can for her particular health concerns, kegel exercises, pap smear screening and followup recommendations, mammography screening and SBE, normal changes in cycles in her life stage---discussed that we will send her the results of the Pap in a letter and we will call her if there are any other tests that are positive but she can also get information on the portal today so that she can get the results herself as well. ---shared with her that it can be normal to still have some awareness of ovarian function throughout the cycle (and given that she did just start on the Depo it is possible that there may have been some ovulatory activity) if I would was suspicious of anything I would do an ultrasound and if she was very worried I would order it but she is not. . Orders: Orders CT NG by PCR Today Z20.2 - Contact with and (suspected) exposure to infections with a predominantly sexual mode of transmission Bacterial Vaginosis Panel Today Z20.2 - Contact with and (suspected) exposure to infections with a predominantly sexual mode of transmission Pap Smear Today Z12.4 - Encounter for screening for malignant neoplasm of cervix Coding Level of Care Code Est Pt Prev Care [id number]([id number]) Diagnoses Potential exposure to STD Z20.2 control counseling Z30.09 Well woman exam with routine gynecological exam Z01.419 Cervical cancer screening Z12.4 Depo-Provera contraceptive status Z30.42
== END 2022-12-26 10:30 | disposition home or self-care (01) ==
LOC: HO.HWS 09:43
PROVIDERS: PCP Nurse Practitioner Family; Visit Provider Advanced Practice Midwife
DX: Z01.419 Encounter for gynecological examination (general) (routine) without abnormal findings (principal); Z32.02 Encounter for pregnancy test, result negative
CPT/HCPCS: 99395

== ENCOUNTER 2022-12-26 09:43 | Outpatient (REF) | payer OTHER, SELFPAY ==
[2022-12-26 16:53] LABS: CT PCR NOT DETECTED (Not Detect.); NG PCR NOT DETECTED (Not Detect.)
[2022-12-27 11:23] LABS: BV Int Neg Control Negative (Negative); BV Int Pos Control Positive (Positive)
== END 2022-12-26 09:44 | disposition home or self-care (01) ==
LOC: HO.LNP 09:43
PROVIDERS: PCP Nurse Practitioner Family; Visit Provider Advanced Practice Midwife
DX: Z12.4 Encounter for screening for malignant neoplasm of cervix (principal); Z20.2 Contact with and (suspected) exposure to infections with a predominantly sexual mode of transmission
CPT/HCPCS: 0353U; 81025; 87480; 87510; 87660; 88142

== ENCOUNTER 2023-02-15 08:53 | Emergency (ER) | payer OTHER, SELFPAY ==
[2023-02-15 09:01] VITALS: BP 117/82; PULSE 69; RESP 16; TEMP 36.2; O2SAT 98; BMI 20.2
--- NOTE | 2023-02-15 09:58 | ED.GENADULT ---
HPI - General Adult General Chief complaint: General Medical Stated complaint: L side facial pain/Shaking Time Seen by Provider: 02/15/23 09:19 Source: patient Mode of arrival: ambulatory Limitations: no limitations History of Present Illness HPI narrative: 22-year-old female with pmhx significant for asthma presents to the ED today with complaint of left-sided facial pain times months. Reports left-sided facial pain, worse at night, exacerbated with lying down in bed on that side. Pain is intermittent. States that she has been evaluated by her PCP for this. Was prescribed naproxen and Zofran which she has been taking for 5 months now without relief of symptoms. She does not have another appointment with her PCP for another 2 and half months. She has also been evaluated by her dentist and her eye doctor for this same pain. All workup has been unremarkable. Denies fever, chills, eye or ear pain, dental pain, neck pain, rash., difficulty breathing or swallowing. Related Data Home Medications Medication Instructions Recorded Confirmed medroxyprogesterone 104 mg/0.65 mL 104 mg subcut [id number] 12/26/22 12/26/22 subcutaneous syringe (Depo-SubQ provera 104) Previous Rx's Medication Instructions Recorded gabapentin 100 mg capsule 100 mg PO BID 2 weeks #28 caps 02/15/23 ondansetron 4 mg disintegrating 4 mg PO DAILY PRN nausea and 02/15/23 tablet vomiting 5 days #10 tabs Allergies Allergy/AdvReac Type Severity Reaction Status Date / Time shrimp [SHRIMP] Allergy Mild RASH Verified 02/15/23 09:01 shrimp Allergy Unknown unknown Uncoded 12/26/22 09:47 Review of Systems Review of Systems: Constitutional: No fever, chills, fatigue, night sweats, weight changes ENT/Mouth: No ear pain, hearing loss, nasal congestion, sinus pain, rhinorrhea, sore throat, +facial pain Eyes: No eye pain, swelling, redness, vision changes, discharge Cardio: No chest pain, palpitations, DOUGLAS, orthopnea, peripheral edema Pulm: No SOB, cough, sputum, wheezing, dyspnea, hemoptysis GI: No nausea, vomiting, hematemesis, abdominal pain, diarrhea, constipation, hematochezia, melena : No irregular bleeding, dysuria, frequency, urgency, hesitancy, hematuria, flank pain, urinary flow changes, urinary incontinence or retention MSK: No back pain, neck pain, joint pain, myalgias Skin: No lesions, rashes Neuro: No weakness, numbness, paresthesias, LOC, dizziness, headache All other systems reviewed and are negative. [facility] Past Medical History Attestation statement: The following information was validated with the patient. Source: old records reviewed and nursing notes reviewed Medical History Asthma Potential exposure to STD Irregular menses Family History Family History Mother HTN (hypertension) Father HTN (hypertension) Social History Social History Housing: Apartment Alcohol intake: never Patient Tobacco Use Status: Never used Tobacco Tobacco use type: Cigarette e-Cigarette/Vaping Use: Never Used service: No Current occupational status: employed Gender identity: Female Cognitive needs: No Hearing needs: No Vision needs: Yes (glasses) Physical Exam ED Vital Signs: Vital Signs - 24 hr 02/15/23 09:01 Temperature 97.1 F Pulse Rate 69 Respiratory Rate 16 Blood Pressure 117/82 Pulse Oximetry 98 Oxygen Delivery Method Room Air BMI result Body Mass Index 20.2 Vital signs stable Const General: cooperative, healthy appearing, comfortable, no acute distress, alert and awake Orientation/consciousness: patient oriented x3 Limitations: no limitations HENMT Other: + No facial edema. Tongue and lips wnl. no tenderness to palpation over the distribution of the facial nerve. + multiple dental caries and restorations. no localized periapical swelling to any teeth. + No edema to buccal mucosa + Posterior oropharynx without erythema/edema. Uvula midline. Controlling secretions and speaking in complete sentences + No submandublar or submental LAD + No cervical LAD Head: Yes normal to inspection, Yes No palpable skull fracture present, Yes normocephalic and Yes atraumatic Ears: hearing grossly normal bilaterally General nose exam: Normal external nose present Eyes General: appearance normal, both eyes and all related structures Neck Neck: Yes normal visual inspection and Yes no meningeal signs Chest Chest palpation & inspection: normal inspection of the chest Resp Effort & Inspection: normal respiratory effort Auscultation: clear to auscultation bilaterally Cardio Rate: regular rate Rhythm: regular rhythm Heart sounds: S1 normal heart sound present and S2 normal heart sound present Peripheral pulses: Peripheral pulses 2+ throughout GI Inspection: Yes normal to inspection Palpation (GI): Soft to palpation, nontender, no guarding and hepatosplenomegaly present General: Yes no CVA tenderness Back/Spine/Pelvis Back: no CVA tenderness Skin General skin exam: no rashes or lesions noted Neuro General: patient oriented x3, gait normal, moves all extremities and no meningeal signs Cranial nerves: Yes CN's II-XII intact bilaterally Extrem General: Yes normal to inspection and Yes full ROM Course Course Course Narrative: Patient's exam overall unremarkable. Will send patient home with trial of gabapentin for suspected nerve pain. Patient not symptomatic in the ED at present. Patient has remained stable throughout ED visit today. Discussed strict return precautions. All questions answered at this time. Patient is agreeable with disposition and stable for discharge. Medical Decision Making Medical Decision Making [facility] Narrative: 22-year-old female with pmhx significant for asthma presents to the ED today with complaint of left-sided facial pain times months. VSS. Patient is nontoxic appearing and in NAD. On exam, there is no facial edema. Tongue and lips wnl. no tenderness to palpation over the distribution of the facial nerve. multiple dental caries and restorations. no localized periapical swelling to any teeth. No edema to buccal mucosa. Posterior oropharynx without erythema/edema. Uvula midline. Controlling secretions and speaking in complete sentences. No submandublar or submental LAD. No cervical LAD. No scalp tenderness or palpable temporal artery bilaterally. Concern for trigeminal neuralgia, migraine, allergic rxn, dental pain, sinus infection, tmj. Unlikely temporal arteritis, CVA/TIA, dissention, ACS. Differential Diagnosis Differential Diagnoses: The differential diagnosis associated with the presentation includes As above Admission/Observation Not indicated External Record Review External record reviewed: Inpatient record Prescription Management I considered prescription management with: Pain Medication and Other Critical Care Time Critical Care Time Critical Care Time: No Discharge Plan Discharge Clinical Impression: Chronic facial pain Patient Disposition: Home, Self-Care Instructions: Gabapentin (By mouth), Pain Management (ED), Warm Compress or Soak (ED) Additional Instructions: Your exam today was unremarkable. You likely have a nerve pain in the face. Gabapentin is a medication that has been sent to your pharmacy to help with this pain. Take this twice daily as prescribed. It may make you sleepy during the day. Do not take this with alcohol. Zofran has also been sent to your pharmacy. This will help with nausea. Take this as needed for nausea or vomiting. Please call your primary care provider tomorrow morning and let them know that you were seen in the emergency department and started on gabapentin. You have also been provided with a referral to a neurologist. You may call them to make an appointment. They will not call you. If symptoms persist or worsen, return to the emergency department. The case of an emergency call 911. Prescriptions: New gabapentin 100 mg capsule 100 mg PO BID 14 Days Qty: 28 0RF ondansetron 4 mg tablet,disintegrating 4 mg PO DAILY PRN (Reason: nausea and vomiting) 5 Days Qty: 10 0RF No Action Depo-SubQ provera 104 104 mg/0.65 mL syringe 104 mg subcut [id number] Referrals: [facility] [place] [facility] [Provider Group] Stand Alone Forms: Work/School Release Interventions: ED Discharge Assessment Last Done: 02/15/23 10:27 Discharge Date/Time: 02/15/23 10:27
[2023-02-15 10:26] VITALS: RESP 17
== END 2023-02-15 10:27 | disposition home or self-care (01) ==
PROVIDERS: Emergency Provider Emergency Medicine; PCP Nurse Practitioner Family
DX: G89.29 Other chronic pain (principal); G50.1 Atypical facial pain; R51.9 Headache, unspecified; Z79.3 Long term (current) use of hormonal contraceptives
CPT/HCPCS: 99283; 99284

== ENCOUNTER 2023-03-10 16:57 | Outpatient (AMB) | payer OTHER, SELFPAY ==
[2023-03-10 16:58] VITALS: BP 100/60; PULSE 95; RESP 17; O2SAT 99; BMI 19.7
--- NOTE | 2023-03-10 16:58 | MHC.PC.OV ---
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 Went to ER last month for this matter. Denies any unilateral weakness associated with the numbness. This has been present for over a year. MRI of the brain ordered. No chest pain or shortness of breath. [facility] Medical History (Updated 03/10/23 @ 17:18 by Beth Roque MD) Asthma Potential exposure to STD Irregular menses Family History Mother HTN (hypertension) Father HTN (hypertension) Social History Housing: Apartment Alcohol intake: never Patient Tobacco Use Status: Never used Tobacco Tobacco use type: Cigarette e-Cigarette/Vaping Use: Never Used service: No Current occupational status: employed Gender identity: Female Cognitive needs: No Hearing needs: No Vision needs: Yes (glasses) Female Reproductive History Menstrual Age of Menarche: 15 Questionnaire PHQ-9 Over the last 2 weeks, how often have you been bothered by any of the following problems? 1. Little interest or pleasure in doing things: not at all 2. Feeling down, depressed, or hopeless: not at all 3. Trouble falling or staying asleep, or sleeping too much: not at all 4. Feeling tired or having little energy: not at all 5. Poor appetite or overeating: not at all 6. Feeling bad about yourself - or that you are a failure or have let yourself or your family down: not at all 7. Trouble concentrating on things, such as reading the newspaper or watching television: not at all 8. Moving or speaking so slowly that other people could have noticed. Or the opposite - being so fidgety or restless that you have been moving around a lot more than usual: not at all 9. Thoughts that you would be better off or of hurting yourself in some way: not at all Total score: 0 Depression Screening Interpretation: Negative Depression Screening Done: Yes 57668 - PHQ-9 Billing: Yes Source: Developed by Drs. Shaun Wynne, Claire Sutton, Santi Berumen and colleagues, with an educational michael from [employer]. Thrive Questionnaire Date Thrive assessed: 03/10/23 I am a: Patient What is your living situation today?: I have a steady place to live Within the past 12 months, did the food you bought not last and you didn't have the money to get more?: Never true Within the past 12 months, did you worry whether your food would run out before you got money to buy more?: Never true Do you have trouble paying for medicines?: No Do you have trouble getting transportation to medical appointments?: No Do you have trouble paying your heating and electricity bill?: No Do you have trouble taking care of your child, family member or friend?: No Do you have trouble with day-to-day activities such as bathing, preparing meals, shopping, managing finances, etc.?: No Are you currently unemployed and looking for a job?: No Are you interested in more education?: No Please select the resources that you would like help with: None Currently or been in a relationship where the following occur: no concerns reported AUDIT C Alcohol Use Questionnaire (AUDIT-C) 1. How often do you have a drink containing alcohol?: Never 3. How often do you have six or more drinks on one occasion?: Never Total Score: 0 AMBAR-7 AMB Questionnaire AMBAR-7 Date AMBAR - 7 assessed: 03/10/23 Feeling nervous, anxious, or on edge: 0 = Not at all Not being able to stop or control worryin = Not at all Worrying too much about different things: 0 = Not at all Trouble relaxin = Not at all Being so restless that it is hard to sit still: 0 = Not at all Becoming easily annoyed or irritable: 0 = Not at all Feeling afraid as if something awful might happen: 0 = Not at all Total AMBAR-7 score (0-4 normal; 5-9 mild; 10-14 moderate; 15-21 severe): 0 Source: Developed by Drs. Shaun Wynne, Claire Sutton, Santi Berumen and colleagues, with an educational michael from [employer]. AMBAR-7 Assessment Billing AMBAR-7 Assessment Tool: AMBAR-7 Assessment 57185 Review of Systems Const All systems reviewed & are unremarkable except as noted in HPI and below Eyes Reports no additional complaints, Denies change in vision and Denies other visual disturbances Card Denies chest pain at rest, Denies chest pain with activity, Denies edema, Denies irregular heart rhythm, Denies claudication, Denies dyspnea, Denies dyspnea on exertion, Denies orthopnea, Denies paroxysmal nocturnal dyspnea and Denies slow heart rate Resp Denies cough, Denies dyspnea and Denies dyspnea on exertion GI Denies abdominal pain, Denies change in bowel habits, Denies excessive flatus, Denies nausea and Denies vomiting Denies urinary incontinence, Denies urinary hesitancy and Denies urinary urgency Musc Denies abnormal gait, Denies atrophy, Denies deformity and Denies limited range of motion Skin/Breast Denies bleeding lesions, Denies changing lesions and Denies rash Neuro Denies abnormal gait, Denies behavioral changes, Denies confusion and Denies lack of coordination Psych Denies behavioral changes and Denies confusion Physical exam (Primary Care) Vital Signs: Last Vital Signs Pulse 95 03/10/23 16:58 Resp 17 03/10/23 16:58 BP 100/60 03/10/23 16:58 Pulse Ox 99 03/10/23 16:58 Oxygen Delivery Method Room Air 03/10/23 16:58 BMI result Body Mass Index 19.7 Tobacco/Smoking Status: Tobacco use Status Tobacco use date assessed 10/16/22 03/10/23 17:02 Patient Tobacco Use Status Never used Tobacco 03/10/23 17:02 Tobacco use type Cigarette 03/10/23 17:02 e-Cigarette/Vaping Use Never Used 03/10/23 17:02 PHQ-9: PHQ-9 Score PHQ-9: Total score 0 03/10/23 17:17 Depression Screening Interpretation: Negative Thrive Assessment: Date of Thrive Assessment Date Thrive assessed 03/10/23 03/10/23 17:02 Currently or been in a relationship where the following occur: no concerns reported Const General: No confusion Orientation/consciousness: patient oriented x3 and No confusion Eyes General: appearance normal, both eyes and all related structures Eyelids: Yes eyelids normal Conjunctivae: conjunctivae normal Neck Neck: Yes normal visual inspection and Yes supple Resp Effort & Inspection: normal respiratory effort Auscultation: clear to auscultation bilaterally Cardio Jugular venous distension: no JVD Rate: regular rate Rhythm: regular rhythm Heart sounds: S1 normal heart sound present and S2 normal heart sound present Neuro General: patient oriented x3, no focal motor deficits and No confusion Extrem General: Yes full ROM Office Procedures Flu Questionnaire Does the patient have a severe egg allergy?: No Does the patient have severe life threatening allergies?: No Does the patient have a fever or illness today?: No Has the patient ever had Guillain-[place] Syndrome?: No Has the patient ever had any past reaction to a flu shot?: No Immunizations flu vacc [id number] 6mos up(PF) 60 mcg(15 mcgx4)/0.5 mL IM syringe Performing Provider: Beth Roque MD Performing Location: [facility] Administered by: MATTIE Blackburn on 03/10/23 17:08 Dose Route Admin Location Dispensed Lot Number Expiration Date [employer] 0.5 mL IM Left Deltoid 0.5 mL [id number] 08/30/23 [id number] [employer] VIS Given Date VIS Provided VIS Publication Date 03/10/23 Single Vaccine 20 Eligibility Eligibility Date Funding Source Not [facility] Eligible 03/10/23 Private Assessment and Plan Assessment & Plan (1) Left facial numbness: Code(s): R20.0 - Anesthesia of skin Plan: Continue gabapentin. MRI of the brain ordered. Orders: Orders Influenza [id number] Immunization Today Z23 - Encounter for immunization Vitamin B12 and Folate Today E53.8 - Deficiency of other specified B group vitamins MR head/brain wo con Today R20.0 - Anesthesia of skin Thyroid Stimulating Hormone Today R63.4 - Abnormal weight loss Vitamin D 25-OH Total Today E55.9 - Vitamin D deficiency, unspecified Medications: Changed From gabapentin 100 mg PO BID 2 weeks 28 caps 0RF To gabapentin 100 mg PO BID 60 caps 0RF 30 days Coding Level of Care Code Est Pt Level 3 (89403) Diagnoses Left facial numbness R20.0 Additional Codes AMBAR-7 Assessment Billing - AMBAR-7 Assessment Tool: AMBAR-7 Assessment 18260 ([id number]) Time Spent (min) 18
== END 2023-03-10 17:18 | disposition home or self-care (01) ==
LOC: HO.HMGH 16:57
PROVIDERS: PCP Nurse Practitioner Family; Visit Provider Internal Medicine
DX: R20.0 Anesthesia of skin (principal); Z23 Encounter for immunization
CPT/HCPCS: 90471; 90686; 99213

== ENCOUNTER 2023-03-11 10:29 | Outpatient (REF) | payer OTHER, SELFPAY ==
[2023-03-11 13:07] LABS: Thyroid Stimulating Hormone 0.78 uIU/mL (0.32-4.0); Vitamin D 25-OH Total 15.4 ng/mL (>30)
[2023-03-11 13:17] LABS: Folate 10.9 ng/mL (> or = 4.0); Vitamin B12 720 pg/mL (200-900)
== END 2023-03-11 10:30 | disposition home or self-care (01) ==
LOC: HO.LAB 10:29
PROVIDERS: PCP Internal Medicine; Visit Provider Internal Medicine
DX: E53.8 Deficiency of other specified B group vitamins (principal); E55.9 Vitamin D deficiency, unspecified; R63.4 Abnormal weight loss
CPT/HCPCS: 36415; 82306; 82607; 82746; 84443

== ENCOUNTER 2023-04-08 08:17 | Outpatient (REF) | payer OTHER, SELFPAY ==
--- NOTE | ~2023-04-08 | MR_ITS ---
EXAMINATION: MR BRAIN WITHOUT CONTRAST CLINICAL INFORMATION: Anesthesia of the skin COMPARISON: CT head 09/24/2020 TECHNIQUE: MRI of the brain was obtained using routine sequences without contrast. FINDINGS: No acute infarct. No acute intracranial hemorrhage or extra-axial fluid collection. The ventricles and sulci are normal in size and configuration without significant volume loss or hydrocephalus. No parenchymal signal abnormality. No mass lesion, mass effect, or herniation pattern. Normal intracranial arterial and dural venous sinus flow voids. Normal appearance of the midline structures. The orbits are grossly unremarkable. The paranasal sinuses and mastoids are well aerated. Normal marrow signal. Fat within the periorbital fissures, pterygopalatine fossae, trigeminal fat pads, and mandibular foramina are preserved. MR/MR head/brain wo con IMPRESSION: Normal brain MRI.
== END 2023-04-08 08:18 | disposition home or self-care (01) ==
LOC: HO.MRI 08:17
PROVIDERS: PCP Internal Medicine; Visit Provider Internal Medicine
DX: R20.0 Anesthesia of skin (principal)
CPT/HCPCS: 70551

== ENCOUNTER 2023-07-02 14:02 | Outpatient (AMB) | payer OTHER, SELFPAY ==
[2023-07-02 14:12] VITALS: BP 102/62; BMI 20.4
--- NOTE | 2023-07-02 14:12 | A.OFFPC_ITS ---
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 Accompanied by: Self / Same As Patient Allergies shrimp [SHRIMP] Allergy (Mild, Verified 07/02/23 14:39) RASH shrimp Allergy (Unknown, Uncoded 07/02/23 14:39) unknown Medication List - Last Reconciled 07/02/23 by Beth Roque MD No Known Home Meds Tobacco use date assessed: 07/02/23 Dental Screening Dental Screen Date: 07/02/23 Did you have a dental visit in the last 12 months?: Yes Did you have a dental problem in the last 6 months where you did not have access to dental care?: No Was dental information given to patient?: Patient has dentist HPI HPI Comments History of Present Illness Details This is a 23-year-old female that comes for her physical exam. Pap smear done on November 2022 was negative. Denies any chest pain or shortness of breath. No fever or cough. Doing well. [facility] Medical History Asthma Potential exposure to STD Irregular menses Surgical History History of wisdom tooth extraction Family History Mother HTN (hypertension) Father HTN (hypertension) Social History Housing: Apartment Alcohol intake: never Patient Tobacco Use Status: Never used Tobacco e-Cigarette/Vaping Use: Never Used service: No Current occupational status: employed Current occupational exposures/hazards: No Gender identity: Female Cognitive needs: No Hearing needs: No Vision needs: Yes (glasses) Female Reproductive History Menstrual Age of Menarche: 15 Questionnaire PHQ-9 Over the last 2 weeks, how often have you been bothered by any of the following problems? 1. Little interest or pleasure in doing things: not at all 2. Feeling down, depressed, or hopeless: not at all 3. Trouble falling or staying asleep, or sleeping too much: not at all 4. Feeling tired or having little energy: not at all 5. Poor appetite or overeating: not at all 6. Feeling bad about yourself - or that you are a failure or have let yourself or your family down: not at all 7. Trouble concentrating on things, such as reading the newspaper or watching television: not at all 8. Moving or speaking so slowly that other people could have noticed. Or the opposite - being so fidgety or restless that you have been moving around a lot more than usual: not at all 9. Thoughts that you would be better off or of hurting yourself in some way: not at all Total score: 0 Depression Screening Interpretation: Negative Depression Screening Done: Yes 75886 - PHQ-9 Billing: Yes Source: Developed by Drs. Shaun Wynne, Claire Sutton, Santi Berumen and colleagues, with an educational michael from [employer]. Thrive Questionnaire Date Thrive assessed: 07/02/23 I am a: Patient What is your living situation today?: I have a steady place to live Within the past 12 months, did the food you bought not last and you didn't have the money to get more?: Never true Within the past 12 months, did you worry whether your food would run out before you got money to buy more?: Never true Do you have trouble paying for medicines?: No Do you have trouble getting transportation to medical appointments?: No Do you have trouble paying your heating and electricity bill?: No Do you have trouble taking care of your child, family member or friend?: No Do you have trouble with day-to-day activities such as bathing, preparing meals, shopping, managing finances, etc.?: No Are you currently unemployed and looking for a job?: No Are you interested in more education?: No Please select the resources that you would like help with: None Currently or been in a relationship where the following occur: no concerns reported THRIVE Score: 0 AUDIT C Alcohol Use Questionnaire (AUDIT-C) 1. How often do you have a drink containing alcohol?: Never Total Score: 0 Score Reviewed/Action Taken: No AMBAR-7 AMB Questionnaire AMBAR-7 Date AMBAR - 7 assessed: 07/02/23 Feeling nervous, anxious, or on edge: 0 = Not at all Not being able to stop or control worryin = Not at all Worrying too much about different things: 0 = Not at all Trouble relaxin = Not at all Being so restless that it is hard to sit still: 0 = Not at all Becoming easily annoyed or irritable: 0 = Not at all Feeling afraid as if something awful might happen: 0 = Not at all Total AMBAR-7 score (0-4 normal; 5-9 mild; 10-14 moderate; 15-21 severe): 0 Source: Developed by Drs. Shaun Wynne, Claire Sutton, Santi Berumen and colleagues, with an educational michael from [employer]. AMBAR-7 Assessment Billing AMBAR-7 Assessment Tool: AMBAR-7 Assessment 23520 Review of Systems Const All systems reviewed & are unremarkable except as noted in HPI and below Eyes Reports no additional complaints, Denies change in vision and Denies other visual disturbances Card Denies chest pain at rest, Denies chest pain with activity, Denies edema, Denies irregular heart rhythm, Denies claudication, Denies dyspnea, Denies dyspnea on exertion, Denies orthopnea, Denies paroxysmal nocturnal dyspnea and Denies slow heart rate Resp Denies cough, Denies dyspnea and Denies dyspnea on exertion GI Denies abdominal pain, Denies change in bowel habits, Denies excessive flatus, Denies nausea and Denies vomiting Denies urinary incontinence, Denies urinary hesitancy and Denies urinary urgency Musc Denies abnormal gait, Denies atrophy, Denies deformity and Denies limited range of motion Skin/Breast Denies bleeding lesions, Denies changing lesions and Denies rash Neuro Denies abnormal gait, Denies behavioral changes, Denies confusion and Denies lack of coordination Psych Denies behavioral changes and Denies confusion Physical exam (Primary Care) Vital Signs: Last Vital Signs BP 102/62 07/02/23 14:12 BMI result Body Mass Index 20.4 Tobacco/Smoking Status: Tobacco use Status Tobacco use date assessed 07/02/23 07/02/23 14:18 Patient Tobacco Use Status Never used Tobacco 07/02/23 14:18 Tobacco use type 07/02/23 14:18 e-Cigarette/Vaping Use Never Used 07/02/23 14:18 PHQ-9: PHQ-9 Score PHQ-9: Total score 0 05/02/24 14:42 Depression Screening Interpretation: Negative Thrive Assessment: Date of Thrive Assessment Date Thrive assessed 07/02/23 07/02/23 14:18 Currently or been in a relationship where the following occur: no concerns reported Const General: No confusion Orientation/consciousness: patient oriented x3 and No confusion HENMT Head: Yes normal to inspection, Yes normocephalic and Yes atraumatic Ears: external ears normal Eyes General: appearance normal, both eyes and all related structures Eyelids: Yes eyelids normal Conjunctivae: conjunctivae normal Neck Neck: Yes normal visual inspection and Yes supple Resp Effort & Inspection: normal respiratory effort Auscultation: clear to auscultation bilaterally Cardio Jugular venous distension: no JVD Rate: regular rate Rhythm: regular rhythm Heart sounds: S1 normal heart sound present and S2 normal heart sound present GI Inspection: Yes normal to inspection Palpation (GI): Soft to palpation and nontender Auscultation: normal bowel sounds Skin General skin exam: no rashes or lesions noted Neuro General: patient oriented x3, no focal motor deficits and No confusion Extrem General: Yes full ROM Psych Appearance: grossly normal Assessment and Plan Assessment & Plan (1) Physical exam: Code(s): Z00.00 - Encounter for general adult medical examination without abnormal findings Plan: Repeat in a year. Orders: Orders Comprehensive [place]. Panel Fast Today Z00.00 - Encounter for general adult medical examination without abnormal findings Lipid Panel Today Z00.00 - Encounter for general adult medical examination without abnormal findings Medications: New cholecalciferol (vitamin D3) 50 mcg PO DAILY 90 days 90 caps 1RF E55.9 - Vitamin D deficiency, unspecified Coding Level of Care Code Est Pt Prev Care 18-39y(47046) Diagnoses Physical exam Z00.00 Additional Codes AMBAR-7 Assessment Billing - AMBAR-7 Assessment Tool: AMBAR-7 Assessment 00512 ([id number]) Time Spent (min) 30
== END 2023-07-02 14:48 | disposition home or self-care (01) ==
PROVIDERS: Visit Provider Internal Medicine
DX: Z00.00 Encounter for general adult medical examination without abnormal findings (principal)
CPT/HCPCS: 99395

== ENCOUNTER 2023-07-24 10:10 | Outpatient (REF) | payer OTHER, SELFPAY ==
[2023-07-24 11:22] LABS: Alanine Aminotransferase 8 U/L (0-31); Albumin Level 4.4 g/dL (3.5-5.0); Alkaline Phosphatase 50 U/L (39-117); Anion Gap 8 (12-20); Aspartate Amino Transferase 14 U/L (5-31); Bilirubin Total 0.5 mg/dL (0.0-1.0); Blood Urea Nitrogen 16 mg/dL (9-16); Calcium 9.7 mg/dL (8.4-10.2); Carbon Dioxide 26 mmol/L (22-29); Chloride 107 mmol/L (96-108); Cholesterol 122 mg/dL (<200); Estimated Glomerular Filt Rate > 60; Glucose Fasting 95 mg/dL (60-99); HDL Cholesterol 48 mg/dL (>40); LDL Cholesterol Calculated 66 mg/dL (<100); Potassium 4.2 mmol/L (3.3-5.1); Sodium 137 mmol/L (135-145); Total Protein 7.5 g/dL (6.5-8.0); Triglycerides 40 mg/dL (<150)
== END 2023-07-24 10:11 | disposition home or self-care (01) ==
LOC: HO.LAB 10:10
PROVIDERS: PCP Internal Medicine; Visit Provider Internal Medicine
DX: Z00.00 Encounter for general adult medical examination without abnormal findings (principal)
CPT/HCPCS: 36415; 80053; 80061

== ENCOUNTER 2023-11-04 11:47 | Outpatient (REF) | payer OTHER, SELFPAY ==
[2023-11-04 14:23] LABS: HBS Num1 29.65 mIU/mL (0-7.99); HBc Num1 0.09 S/CO (0.00-0.79); HBsAGNum1 0.43 S/CO (0.00-0.99); Hepatitis B Core Antibody Nonreactive (Nonreactive); Hepatitis B Surface Antigen Negative (Negative); ~Hepatitis B Surface Antibody REACTIVE (Nonreactive)
[2023-11-05 19:03] LABS: Rubella IgG Antibody 6.96 Index
[2023-11-07 11:32] LABS: TS Negative Control Passed; TS Panel A 0; TS Panel B 1; TS Positive Control Passed; TSpotTB Negative (Negative)
== END 2023-11-04 11:48 | disposition home or self-care (01) ==
LOC: HO.LAB 11:47
PROVIDERS: PCP Internal Medicine; Visit Provider Internal Medicine
DX: Z23 Encounter for immunization (principal); Z11.1 Encounter for screening for respiratory tuberculosis
CPT/HCPCS: 36415; 86481; 86704; 86706; 86735; 86762; 86765; 86787; 87340

== ENCOUNTER 2023-12-30 10:14 | Emergency (ER) | payer OTHER, SELFPAY ==
[2023-12-30 11:03] VITALS: BP 119/81; PULSE 89; RESP 16; TEMP 36.8; O2SAT 100; BMI 20.7
--- NOTE | 2023-12-30 11:52 | ED_ITS ---
HPI - Headache General Chief Complaint: Headache Stated Complaint: r shoulder/face pain-r side face numb Time Seen by Provider: 12/30/23 11:43 Source: patient, RN notes reviewed and old records reviewed Mode of arrival: ambulatory History of Present Illness ED Provider: Pamela Foss PA-C HPI Narrative: 23-year-old female with past medical history of asthma, chronic right-sided facial pain, presenting to the ED complaining of acute on chronic right-sided facial pain with radiation to right shoulder/chest x this morning. Facial pain described as stabbing, with right shoulder/upper chest tightness. Also reports chills, sweats, and neck inflamed lymph nodes. Denies recent injury, trauma, fall, vision change or loss, nausea/vomiting, weakness, chest pain, shortness of breath. Admits to brain MRI in April which was unremarkable. Has been falling with PCP for chronic facial symptoms Related Data Previous Rx's ?Medication ?Instructions ?Recorded cholecalciferol (vitamin D3) 50 50 mcg PO DAILY 90 days #90 caps 07/02/23 mcg (2,000 unit) capsule anysrpbvnw-kphykymnxtkgh-xwxhrahp 1 cap PO Q6H PRN headache #8 caps 12/30/23 50 mg-300 mg-40 mg capsule (Fioricet) Allergies Allergy/AdvReac Type Severity Reaction Status Date / Time shrimp [SHRIMP] Allergy Mild RASH Verified 12/30/23 11:06 shrimp Allergy Unknown unknown Uncoded 07/02/23 14:39 Review of Systems 2 Review of Systems: Yes all other systems are reviewed and are negative Constitutional: Constitutional: Reports as per HPI Neurologic: Denies Abnormal speech present and Reports Sensory deficit (Neuro) (Decreased sensation reported to right side of face) [facility] Past Medical History Attestation statement: The following information was validated with the patient. Source: old records reviewed Medical History Asthma Potential exposure to STD Irregular menses Surgical History History of wisdom tooth extraction Family History Family History Mother HTN (hypertension) Father HTN (hypertension) Social History Social History Housing: Apartment Alcohol intake: never Patient Tobacco Use Status: Never used Tobacco e-Cigarette/Vaping Use: Never Used service: No Current occupational status: employed Current occupational exposures/hazards: No Gender identity: Female Cognitive needs: No Hearing needs: No Vision needs: Yes (glasses) Physical Exam 2 Vital Signs: Vital Signs: Last Vital Signs Temp 96.4 F L 12/30/23 13:51 Pulse 90 12/30/23 13:51 Resp 18 12/30/23 13:51 BP 113/69 12/30/23 13:51 Pulse Ox 98 12/30/23 13:51 O2 Del Method Room Air 12/30/23 13:51 BMI result Body Mass Index 20.7 Const: General: cooperative, healthy appearing and no acute distress O rientation/consciousness: patient oriented x3 Limitations: no limitations HEENT: Head: Yes normal to inspection and Yes atraumatic Ears: hearing grossly normal bilaterally, external ears normal, TM's normal bilaterally and mastoids normal General nose exam: Normal external nose present Face and sinus: Yes normal facial exam Mouth: Normal oral and palatal mucosa present and no drooling Throat: Yes posterior oropharynx normal, Yes tonsils normal, Yes uvula midline, No uvula laterally displaced and No uvular edema Eyes: General: appearance normal, both eyes and all related structures P upils: Equal, round and reactive pupils present EOM: EOMs intact bilaterally Neck: Neck: Yes normal visual inspection and Yes no meningeal signs Resp: Effort & Inspection: normal respiratory effort and no respiratory distress Auscultation: clear to auscultation bilaterally Cardio: Rate: regular rate Heart sounds: S1 normal heart sound present and S2 normal heart sound present GI: Inspection: Yes normal to inspection Palpation (GI): Soft to palpation, nontender, no guarding and not rigid Skin: Rashes: no rashes Wounds: no wounds Neuro: General: patient oriented x3, gait normal, tone normal, moves all extremities, no meningeal signs, no focal motor deficits and CN's II-XI intact bilaterally Cranial nerves: Yes CN's II-XII intact bilaterally, Yes Equal, round and reactive pupils present and Yes Bilaterally intact EOM present C ognition (Neuro): normal cognition Speech: No Abnormal speech present Gait exam (Neuro): Normal gait present Motor exam (neuro): 5/5 motor strength present throughout Sensory Exam: Sensory deficit (Neuro) (Decreased sensation reported to right side of face) Extrem: General: Yes normal to inspection Course Course Course Narrative: -labs reassuring including negative troponin and hCG Results discussed with patient including worrisome signs and symptoms and strict return precautions, and when to return to the emergency department. They verbalized understanding and feel safe for discharge at this time. Medications Administered Discontinued Medications Generic Name Dose Route Start Last Admin Trade Name Merlyn PRN Reason Stop Dose Admin Acetaminophen/Butalbital/Caffeine 1 tab 12/30/23 13:34 12/30/23 13:48 Butalb/Acetamin/Caff 50/325/40 Tablet PO 12/30/23 13:35 1 tab ONCE ONE Administration Medical Decision Making Medical Decision Making [facility] Narrative: 23-year-old female with past medical history of asthma, chronic right-sided facial pain, presenting to the ED complaining of acute on chronic right-sided facial pain with radiation to right shoulder/chest x this morning. On exam vital signs stable, NAD, nontoxic appearing, no focal neuro deficits. Decreased sensation to right side of face. Symptoms or acute on chronic. Low suspicion for acute or subacute CVA/TIA. No evidence of Thrasher's palsy. Concern for chronic paresthesias vs complicated migraine headache. Unlikely ACS or ICH Plan: EKG, labs including Lyme, PCP follow-up. Patient had negative head CT on 09/24/2020 and negative brain MRI on 04/08/2023. No need for additional brain imaging at this time Please refer to course for remaining clinical decision making, interpretation of labs/imaging results, and discussions with consultants and/or family members. Differential Diagnosis Differential Diagnoses: The differential diagnosis associated with the presentation includes As above Admission/Observation Consideration of admission/observation: Escalation of care including admission/observation considered Lab Data [facility] Lab Attestation statement: I reviewed the patient's lab results. 12/30/23 12:31 12/30/23 12:31 Labs: Lab Results 12/30/23 Range/Units 12: WBC 10.4 (4.8-10.8) X10*3/uL RBC 4.25 (4.20-5.50) X10*6/uL Hgb 12.6 (12.0-16.0) g/dl Hct 37.9 (37.0-47.0) % MCV 89.2 (80.0-98.0) fL MCH 29.6 (27.0-33.0) pg MCHC 33.2 (31.0-35.0) g/dl RDW 12.4 (11.0-16.0) % Plt Count 448 H D (160-400) X10*3/uL MPV 9.5 (9.4-12.3) fL Immature Gran % (Auto) 0.4 (0.0-0.4) % Neut % (Auto) 76.3 H (45-73) % Lymph % (Auto) 16.5 L (20-40) % Leake % (Auto) 5.5 (2-11) % Eos % (Auto) 0.8 (0-4) % Baso % (Auto) 0.5 (0-2) % Lymph # (Auto) 1.7 (1.2-4.9) X10*3/uL Leake # (Auto) 0.6 (0.1-1.2) X10*3/uL Eos # (Auto) 0.1 (0.0-0.4) X10*3/uL Baso # (Auto) 0.1 (0.0-0.2) X10*3/uL Abs Immat Gran (auto) 0.04 H (0.00-0.03) X10*3/uL Absolute Neuts (auto) 7.9 (2.0-8.3) x10*3/uL Absolute Nucleated RBC 0.000 (0.0-0.012) X10*3/uL Nucleated RBC % (auto) 0.0 (0.0-0.2) /100WBC Sodium 136 (135-145) mmol/L Potassium 4.4 (3.3-5.1) mmol/L Chloride 107 (96-108) mmol/L Carbon Dioxide 22 (22-29) mmol/L Anion Gap 11 L (12-20) BUN 15 (9-16) mg/dL Creatinine 0.70 (0.5-1.4) mg/dL Estim Creat Clear Calc 95.1 Estimated GFR > 60 Random Glucose 101 (60-115) mg/dL Calcium 9.7 (8.4-10.2) mg/dL Magnesium 1.9 (1.6-2.6) mg/dL Total Bilirubin 0.9 (0.0-1.0) mg/dL Direct Bilirubin 0.3 (0.0-0.5) mg/dL AST 20 (5-31) U/L ALT 13 (0-31) U/L Alkaline Phosphatase 46 (39-117) U/L Troponin I High Sens < 2.7 (<3.5-17.0) ng/L Total Protein 7.8 (6.5-8.0) g/dL Albumin 4.4 (3.5-5.0) g/dL Beta HCG, Quant < 2 mIU/mL Independent Interpretation I performed an independent interpretation of an: EKG Radiology Impression Discussion of test interpretation with radiology: I have reviewed the radiologist's reading. External Record Review External record reviewed: Inpatient record, Office record, Outpatient record, Prior outpatient labs, Prior outpatient radiology, Primary care record and Outside ED record Tests considered The following testing was considered but not selected: As above Chronic Conditions Patient?s care impacted by: Other Social Determinants Patient?s care significantly limited by Social Determinants of Health including: Problems related to primary support group, Problems related to employment and Other Social Determinant of Health Discharge Plan Discharge Clinical Impression: Right sided facial pain Patient Disposition: Home, Self-Care Instructions: General Headache (ED) Additional Instructions: Your blood work was reassuring Fioricet is a combination headache medication, take as needed for headache This has Tylenol mixed in, do not exceed 4 g of Tylenol in 1 day If her symptoms persist or worsen, you have weakness, vision change or loss return to the emergency department Please follow-up with your doctor as well as Neurology Prescriptions: New rgodbpjkev-gxgebuxdhmgul-fsoc [Fioricet] 50-300-40 mg capsule 1 cap PO Q6H PRN (Reason: headache) Qty: 8 0RF No Action cholecalciferol (vitamin D3) 50 mcg (2,000 unit) capsule 50 mcg PO DAILY 90 Days Qty: 90 1RF Referrals: [facility] [Provider Group] Cezar Francis MD [Physician] - Beth Smith MD [Primary Care Provider] - Stand Alone Forms: Work/School Release Interventions: ED Discharge Assessment Last Done: 12/30/23 13:51 Discharge Date/Time: 12/30/23 13:52 Print Language: Albanian
--- NOTE | 2023-12-30 11:54 | ECG_ITS ---
Test Reason : r shoulder pain Blood Pressure : / mmHG Vent. Rate : 069 BPM Atrial Rate : 069 BPM P-R Int : 114 ms QRS Dur : 072 ms QT Int : 382 ms P-R-T Axes : 058 088 018 degrees QTc Int : 409 ms Normal sinus rhythm Nonspecific ST and T wave abnormality Borderline ECG When compared with ECG of 24-SEP-2020 08:37, Nonspecific T wave abnormality now evident in Inferior leads Referred By: Pamela Foss Electronically Signed By:PRO RODRIGUEZ
[2023-12-30 12:37] LABS: MANUAL DIFF FLAG NO
[2023-12-30 12:39] LABS: Basophils Absolute Auto 0.1 X10*3/uL (0.0-0.2); Basophils Percent Auto 0.5 % (0-2); Eosinophils Absolute Auto 0.1 X10*3/uL (0.0-0.4); Eosinophils Percent Auto 0.8 % (0-4); Hematocrit 37.9 % (37.0-47.0); Hemoglobin 12.6 g/dl (12.0-16.0); Imm Gran Abs Auto 0.04 X10*3/uL (0.00-0.03); Imm Gran Pct Auto 0.4 % (0.0-0.4); Lymphocytes Absolute Auto 1.7 X10*3/uL (1.2-4.9); Lymphocytes Percent Auto 16.5 % (20-40); Mean Corpuscular HGB Conc 33.2 g/dl (31.0-35.0); Mean Corpuscular Hemoglobin 29.6 pg (27.0-33.0); Mean Corpuscular Volume 89.2 fL (80.0-98.0); Mean Platelet Volume 9.5 fL (9.4-12.3); Monocytes Absolute Auto 0.6 X10*3/uL (0.1-1.2); Monocytes Percent Auto 5.5 % (2-11); Neutrophils Absolute Auto 7.9 x10*3/uL (2.0-8.3); Neutrophils Percent Auto 76.3 % (45-73); Platelet Count 448 X10*3/uL (160-400); Red Blood Count 4.25 X10*6/uL (4.20-5.50); Red Cell Distribution Width 12.4 % (11.0-16.0); White Blood Count 10.4 X10*3/uL (4.8-10.8)
[2023-12-30 13:07] LABS: Alanine Aminotransferase 13 U/L (0-31); Albumin Level 4.4 g/dL (3.5-5.0); Alkaline Phosphatase 46 U/L (39-117); Anion Gap 11 (12-20); Aspartate Amino Transferase 20 U/L (5-31); Bilirubin Direct 0.3 mg/dL (0.0-0.5); Bilirubin Total 0.9 mg/dL (0.0-1.0); Blood Urea Nitrogen 15 mg/dL (9-16); Calcium 9.7 mg/dL (8.4-10.2); Carbon Dioxide 22 mmol/L (22-29); Chloride 107 mmol/L (96-108); Creatinine Clr Calc Pharmacy 95.1; Estimated Glomerular Filt Rate > 60; Glucose Random 101 mg/dL (60-115); Magnesium 1.9 mg/dL (1.6-2.6); Potassium 4.4 mmol/L (3.3-5.1); Sodium 136 mmol/L (135-145); Total Protein 7.8 g/dL (6.5-8.0)
[2023-12-30 13:08] LABS: Troponin-I High Sensitivity < 2.7 ng/L (<3.5-17.0)
[2023-12-30 13:11] LABS: HCG Quantitative < 2 mIU/mL
[2023-12-30] MEDS: Butalb/Acetamin/Caff 50/325/40 TABLET 1 TAB PO (13:48)
[2023-12-30 13:49] VITALS: BP 113/69; PULSE 90; RESP 18; TEMP 35.8; O2SAT 98
[2023-12-30 13:51] VITALS: BP 113/69; PULSE 90; RESP 18; TEMP 35.8; O2SAT 98
[2023-12-31 21:03] LABS: Lyme Abs Screen <0.90 index
== END 2023-12-30 13:52 | disposition home or self-care (01) ==
PROVIDERS: Physician Assistant; Emergency Provider Emergency Medicine Emergency Medical Services; PCP Internal Medicine
DX: R51.9 Headache, unspecified (principal); R07.89 Other chest pain; M25.511 Pain in right shoulder
CPT/HCPCS: 36415; 80048; 80076; 83735; 84484; 84702; 85025; 86617; 86618; 93005; 99283; 99284

== ENCOUNTER → 2023-12-30 11:54 | Outpatient (BNV) | payer OTHER, SELFPAY | PROVIDERS: Emergency Provider Emergency Medicine Emergency Medical Services; PCP Internal Medicine; Visit Provider Internal Medicine | DX: R94.31 Abnormal electrocardiogram [ECG] [EKG] (principal) | CPT/HCPCS: 93010 ==

== ENCOUNTER 2024-01-05 08:44 | Outpatient (AMB) | payer OTHER, SELFPAY ==
[2024-01-05 08:52] VITALS: BP 124/72; PULSE 76; O2SAT 98; BMI 20.6
--- NOTE | 2024-01-05 08:52 | A.OFFPC_ITS ---
Vital Signs 01/05/24 08:52 Height 5 ft 1 in Weight 109 lb 0.8 oz BMI 20.6 BP 124/72 Blood Pressure Location Lt brachial Position Sitting Pulse 76 Pulse Source Pulse Oximeter Pulse Oximetry (%) 98 Oxygen Delivery Method Room Air Intake [place] [facility] [place] sided facial pain Intake Note: Patient is here to follow-up after a visit the emergency department [place] [facility] [place]23 Oil Deliverer Required: No Business System Consultant: Not Required per policy Accompanied by: Self / Same As Patient Allergies shrimp [SHRIMP] Allergy (Mild, Verified 01/05/24 08:53) RASH shrimp Allergy (Unknown, Uncoded 01/05/24 08:53) unknown Tobacco use date assessed: 01/05/24 Dental Screening Dental Screen Date: 07/02/23 HPI HPI Comments History of Present Illness Details 23 y/o female patient who presents to [facility] today for EDF. Pt was admitted at [facility] [place] for complaining of chronic right-sided facial pain with radiation to right shoulder/chest x 1 year now. Facial pain described as stabbing/tightness, with right shoulder/upper chest tightness Plus right sided temporal headaches. Also reports chills, sweats, nausea but no vomiting. Denies recent injury, trauma, fall, vision change or loss, weakness, chest pain, shortness of breath. Brain MRI in April 2023 was unremarkable. She was discharged home the same day on Fiorecet. 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 Denies alcohol or drug use. Denies smoking weed or cigarettes. Sexually active with 1 male partner - has Nexplanon (placed 3-4 months ago). Denies chronic medical problems. [facility] Medical History Asthma Potential exposure to STD Irregular menses Surgical History History of wisdom tooth extraction Family History Mother HTN (hypertension) Father HTN (hypertension) Social History Housing: Apartment Alcohol intake: never Patient Tobacco Use Status: Never used Tobacco e-Cigarette/Vaping Use: Never Used service: No Current occupational status: employed Current occupational exposures/hazards: No Gender identity: Female Cognitive needs: No Hearing needs: No Vision needs: Yes (glasses) Female Reproductive History Menstrual Age of Menarche: 15 Questionnaire Thrive Questionnaire Date Thrive assessed: 07/02/23 AUDIT C Alcohol Use Questionnaire (AUDIT-C) 1. How often do you have a drink containing alcohol?: Never Total Score: 0 Score Reviewed/Action Taken: No AMBAR-7 AMB Questionnaire AMBAR-7 Date AMBAR - 7 assessed: 07/02/23 Source: Developed by Drs. Shaun Wynne, Claire Sutton, Santi Berumen and colleagues, with an educational michael from [employer]. Review of Systems Const All systems reviewed & are unremarkable except as noted in HPI and below ENT Reports Normal hearing present Neuro Reports Normal hearing present Physical exam (Primary Care) Vital Signs: Last Vital Signs Pulse 76 01/05/24 08:52 BP 124/72 01/05/24 08:52 Pulse Ox 98 01/05/24 08:52 Oxygen Delivery Method Room Air 01/05/24 08:52 BMI result Body Mass Index 20.6 Tobacco/Smoking Status: Tobacco use Status Tobacco use date assessed 01/05/24 01/05/24 08:54 Patient Tobacco Use Status Never used Tobacco 01/05/24 08:52 Tobacco use type 12/30/23 14:00 e-Cigarette/Vaping Use Never Used 01/05/24 08:52 Thrive Assessment: Date of Thrive Assessment Date Thrive assessed 07/02/23 01/05/24 08:52 Const General: cooperative and no acute distress Orientation/consciousness: patient oriented x3 HENMT Head: Yes normocephalic Ears: external ears normal General nose exam: Normal external nose present Face and sinus: Yes normal facial exam and Yes sinuses nontender Eyes Pupils: Equal, round and reactive pupils present EOM: EOMs intact bilaterally Neck Neck: Yes full ROM and Yes no lymphadenopathy Resp Effort & Inspection: normal respiratory effort Auscultation: clear to auscultation bilaterally Cardio Heart sounds: S1 normal heart sound present and S2 normal heart sound present Skin General skin exam: no rashes or lesions noted Neuro General: patient oriented x3, gait normal and moves all extremities Cranial nerves: Yes Equal, round and reactive pupils present, Yes Bilaterally intact EOM present, Yes Normal facial strength present, Yes Midline tongue present and Yes Normal hearing present Motor exam (neuro): 5/5 motor strength present throughout Psych Speech and movement: Normal speech and movement present Coding Level of Care Code Est Pt Level 4 (62847) Diagnoses Left facial numbness R20.0 Persistent headaches R51.9 Time Spent (min) 20 Comment Spent reviewing hospital notes and patient education Assessment & Plan Assessment & Plan (1) Left facial numbness: Code(s): R20.0 - Anesthesia of skin Category: Medical Plan: Hx consistent with chronic Migraine headaches. Will start patient on Abortive medication (Sumatriptan PO) Will also start Preventive medication such as Amitriptyline. Pt was educated on all medication side effects. F/U [facility] manifest/order organizer print orders, Pt has a new Nexplanon (3-4 months). Advised Pt that sometimes increase in Hormone can make Migraine headaches worse. Discussed sleep hygiene, lifestyle changes and avoiding Triggers. (2) Persistent headaches: Code(s): R51.9 - Headache, unspecified Plan: Hx consistent with chronic Migraine headaches. Will start patient on Abortive medication (Sumatriptan PO) Will also start Preventive medication such as Amitriptyline. Pt was educated on all medication side effects. F/U [facility] manifest/order organizer print orders, Pt has a new Nexplanon (3-4 months). Advised Pt that sometimes increase in Hormone can make Migraine headaches worse. Discussed sleep hygiene, lifestyle changes and avoiding Triggers. Plan Will refer Pt to an outside Neurology office. [facility] [place] not [place] new Patients at this time. Pt will f/u with PCP within a month or so. Orders: Referrals Neurology Referral R20.0 - Anesthesia of skin, R51.9 - Headache, unspecified Medications: New sumatriptan succinate TAKE 1 TABLET AT ONSET OF HEADACHE; IF NO RELIEF MAY TAKE SECOND DOSE AFTER AT LEAST 2 HOURS. MAXIMUM 3 TABLETS/ 24 HOURS PO. 20 tabs 2RF R20.0 - Anesthesia of skin, R51.9 - Headache, unspecified amitriptyline 10 mg PO BEDTIME 90 tabs 1RF R20.0 - Anesthesia of skin, R51.9 - Headache, unspecified ibuprofen 600 mg PO Q6H PRN 60 tabs 0RF pain R20.0 - Anesthesia of skin, R51.9 - Headache, unspecified
== END 2024-01-05 09:21 | disposition home or self-care (01) ==
LOC: HO.HMCH 08:45
PROVIDERS: PCP Internal Medicine; Visit Provider Nurse Practitioner Family
DX: R20.0 Anesthesia of skin (principal); R51.9 Headache, unspecified

== ENCOUNTER → 2024-01-05 08:44 | Outpatient (BNVA) | payer OTHER, SELFPAY | PROVIDERS: PCP Internal Medicine; Visit Provider Nurse Practitioner Family | DX: R20.0 Anesthesia of skin (principal); R51.9 Headache, unspecified | CPT/HCPCS: 99212 ==

== ENCOUNTER 2024-01-22 11:14 | Outpatient (REF) | payer OTHER, SELFPAY ==
[2024-01-23 05:46] LABS: CT PCR NOT DETECTED (Not Detect.); NG PCR NOT DETECTED (Not Detect.)
[2024-01-23 12:40] LABS: Bacterial Vaginosis PCR NEGATIVE (Negative); Candida Group PCR NOT DETECTED (Not Detect); Candida glab krusei PCR NOT DETECTED (Not Detect); Trichomonas vaginalis PCR NOT DETECTED (Not Detect)
== END 2024-01-22 11:15 | disposition home or self-care (01) ==
LOC: HO.LAB 11:14
PROVIDERS: PCP Nurse Practitioner Family; Visit Provider Advanced Practice Midwife
DX: N89.8 Other specified noninflammatory disorders of vagina (principal); Z20.2 Contact with and (suspected) exposure to infections with a predominantly sexual mode of transmission; Z01.419 Encounter for gynecological examination (general) (routine) without abnormal findings; R51.9 Headache, unspecified; R20.0 Anesthesia of skin; R20.2 Paresthesia of skin
CPT/HCPCS: 0352U; 87491; 87591; 99395

== ENCOUNTER 2024-01-22 11:14 | Outpatient (AMB) | payer OTHER, SELFPAY ==
[2024-01-22 11:21] VITALS: BP 110/60; BMI 20.8
--- NOTE | 2024-01-22 11:21 | A.OFFVIS_ITS ---
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 MAXIMUM 3 TABLETS/ 24 HOURS PO. 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 She is sexually active with her boyfriend she is currently using condoms she had the Nexplanon [facility] had [facility] Nex[facility]on since she was 17 and then she went on Depo-Provera for a while and she was on Depo last year when I saw her and then she [facility] she had it in about 4 but she was getting really bad migraine type pains had and where she could not feel the whole right side of her face and a really bad pain in her head and every time she went to the ER they could not find out what was so now she is waiting on a neurology appointment April 07. She was given medication for the headaches but it was not hoping at all and she is also warned about side effects if she got as so she did not want to take the just in case she has been diligent about using condoms she does not want to get pre gnant she [facility] copper [facility]UD T but she is nervous about that. [facility] Medical History Asthma Potential exposure to STD Irregular menses Surgical History History of wisdom tooth extraction Family History Mother HTN (hypertension) Father HTN (hypertension) Social History Housing: Apartment Alcohol intake: never Patient Tobacco Use Status: Never used Tobacco e-Cigarette/Vaping Use: Never Used service: No Current occupational status: employed Current occupational exposures/hazards: No Gender identity: Female Cognitive needs: No Hearing needs: No Vision needs: Yes (glasses) Female Reproductive History Menstrual Age of Menarche: 15 Duration of menses: 3-5 days Date of last menstrual period: 01/15/24 control method: none Total pregnancies: 0 Date of last pap smear: 12/26/22 (negative) History of abnormal pap smear: No Physical Exam Vital Signs: Last Vital Signs BP 110/60 01/22/24 11:21 BMI result Body Mass Index 20.8 Const General: healthy appearing, comfortable, no acute distress, well developed and alert Nutritional Appearance: average body habitus Orientation/consciousness: patient oriented x3 Limitations: no limitations HEENT Head: Yes normocephalic Neck Neck: Yes normal visual inspection Chest Chest palpation & inspection: normal inspection of the chest Breast/axilla inspection: normal inspection of the breasts and normal inspection of the axillae Breast/axilla palpation: normal palpation of the breasts and normal palpation of the axillae Resp Effort & Inspection: normal respiratory effort GI Inspection: Yes normal to inspection, No Abdominal wall edema and No distended Palpation (GI): Soft to palpation and nontender Other: External exam within it is vagina cervix nulliparous moist clear whitish discharge healthy appearing cervix is close thick mobile. Uterus is small anteverted mobile nontender adnexa nontender good muscle tone General: Yes bladder normal to palpation External Female Exam: normal external appearance and normal appearance of the urethra Speculum Exam - Vagina: normal appearance of the vagina, normal palpation and normal vaginal discharge Speculum Exam - Cervix: normal appearance of the cervix, normal palpation and nontender Bimanual exam- vagina & uterus: normal bimanual exam, normal palpation, uterine size normal, bladder normal to palpation, consistency normal, normal palpation, uterine mobility normal, uterine shape normal, No Cervical tenderness present, non-tender and no cervical motion tenderness Bimanual Exam- Adnexa, other: normal adnexae, no masses, normal and No adnexal tenderness Neuro General: patient oriented x3 Assessment & Plan Assessment & Plan (1) Right sided facial pain: Comment: Is awaiting neurological workup and avoiding hormonal methods of control at this time [facility] Code(s): R51.9 - Headache, unspecified Category: Medical (2) Well woman exam with routine gynecological exam: Code(s): Z01.419 - Encounter for gynecological examination (general) (routine) without abnormal findings Category: Medical (3) Cervical cancer screening: Comment: first pap 12/26/22= negative. Code(s): Z12.4 - Encounter for screening for malignant neoplasm of cervix Category: Medical (4) Left facial numbness: Comment: (patient described it today as right side when it happens, accompanied with pain, awaiting workup with Neurology, avoiding hormonal methods of control, Code(s): R20.0 - Anesthesia of skin Category: Medical (5) Potential exposure to STD: Code(s): Z20.2 - Contact with and (suspected) exposure to infections with a predominantly sexual mode of transmission Category: Medical (6) control counseling: Comment: [facility] to the right-sided facial pain/headaches. is avoiding hormonal methods at this time using condoms. Code(s): Z30.09 - Encounter for other general counseling and advice on contraception Category: Medical Plan -----Discussed in this visit the following: healthy balanced diet, regular and consistent exercise, getting recommended health screens, doing the best she can for her particular health concerns, kegel exercises, pap smear screening and followup recommendations, mammography screening and SBE, normal changes in cycles in her life stage--- . Her 1st Pap was last year we did testing for STIs with a pelvic exam today her discharge appears within she says she did have urine test [facility] those [facility]. She is using condoms fear tearfully she is very clear she does not want to get that she continue the did. She is awaiting a neurological workup on April 07 for her right-sided facial pain and numbness that occurs periodically the has not occurred since she remove the Nexplanon last week. Reviewed careful use of can lose and highly recommend avoiding very carefully until she has her neurological situation evaluated in the plan of care made. Discussed that if she did get we do not have a birthing center there and she would much better advised to get a care from the start at [facility] especially if she has something neurologicall to be concerned about. Coding Level of Care Code Est Pt Prev Care 18-39y([id number]) Diagnoses Right sided facial pain R51.9 Well woman exam with routine gynecological exam Z01.419 Cervical cancer screening Z12.4 Left facial numbness R20.0 Potential exposure to STD Z20.2 control counseling Z30.09
== END 2024-01-22 13:03 | disposition home or self-care (01) ==
PROVIDERS: PCP Nurse Practitioner Family; Visit Provider Advanced Practice Midwife
DX: Z01.419 Encounter for gynecological examination (general) (routine) without abnormal findings (principal); R51.9 Headache, unspecified; Z12.4 Encounter for screening for malignant neoplasm of cervix; R20.0 Anesthesia of skin; Z20.2 Contact with and (suspected) exposure to infections with a predominantly sexual mode of transmission; Z30.09 Encounter for other general counseling and advice on contraception
CPT/HCPCS: 99395

== ENCOUNTER 2024-04-10 14:49 | Emergency (ER) | payer MEDICAID, SELFPAY ==
--- NOTE | ~2024-04-10 | US_ITS ---
CLINICAL HISTORY: 6wks preg, pain, bleeding Ultrasound OB first trimester Comparison: None Findings: Single live intrauterine . CRL: 0.3 cm. EGA: 6 weeks and 0 days. CRISTINA: 12/04/24. Previously established gestational age: N/A. Normal yolk sac. FHR: 112 bpm. Moderate-sized subchorionic bleed measuring 2.1 x 1.6 x 3.5 cm. Normal uterus and ovaries. Left corpus luteum. No free fluid. Impression: Single live intrauterine estimated at 6 weeks and 0 days gestational age by today's ultrasound criteria. Moderate-sized subchorionic hemorrhage. This document has been electronically signed by: Racquel Escalona MD on 04/10/2024 17:01:41
--- NOTE | 2024-04-10 15:14 | ED.FEMALEGU ---
HPI - Female Genitourinary General Chief complaint: Vaginal Bleeding Stated complaint: , bleeding Time Seen by Provider: 04/10/24 20:08 Source: patient Limitations: no limitations History of Present Illness ED Provider: Farrah Pearce PA-C HPI Narrative: The patient is a 24-year-old female with LMP 02/27/2024, currently 6 weeks , presenting with vaginal bleeding since earlier today. Patient states she has gone through 2 pads since the bleeding started this morning. Associated lower abdominal cramping. Patient has her 1st covering machine operator helper appointment with [facility] the beginning of April. Related Data Previous Rx's ?Medication ?Instructions ?Recorded cholecalciferol (vitamin D3) 50 50 mcg PO DAILY 90 days #90 caps 07/02/23 mcg (2,000 unit) capsule zlczdmleze-byxyhdntefikz-uwsjbsei 1 cap PO Q6H PRN headache #8 caps 12/30/23 50 mg-300 mg-40 mg capsule (Fioricet) amitriptyline 10 mg tablet 10 mg PO BEDTIME #90 tabs 01/05/24 ibuprofen 600 mg tablet 600 mg PO Q6H PRN pain #60 tabs 01/05/24 sumatriptan succinate 50 mg tablet See Rx Instructions PO .COMPLEX 01/05/24 #20 tabs Allergies Allergy/AdvReac Type Severity Reaction Status Date / Time shrimp [SHRIMP] Allergy Mild RASH Verified 04/10/24 15:17 shrimp Allergy Unknown unknown Uncoded 04/10/24 15:17 Review of Systems Review of Systems: Yes all other systems are reviewed and are negative Constitutional: Constitutional: Denies fatigue and Denies fever(s) Gastrointestinal: Gastrointestinal: Reports abdominal pain, Reports GI cramping, Denies diarrhea, Denies nausea and Denies vomiting Genitourinary: Genitourinary: Denies dysuria, Reports pelvic pain and Reports other (Vaginal bleeding) Endocrine: Endocrine: Denies fatigue PMFSH Past Medical History Attestation statement: The following information was validated with the patient. Medical History Asthma Potential exposure to STD Irregular menses Surgical History History of wisdom tooth extraction Family History Family History Mother HTN (hypertension) Father HTN (hypertension) Social History Social History Housing: Apartment Alcohol intake: never Patient Tobacco Use Status: Never used Tobacco Smoked in Last 30 Days: No e-Cigarette/Vaping Use: Never Used Use of substances other than those prescribed or required for medical reasons: No Advance Directives: No Advance Directives Information Provided: No Do you have a plan to hurt others: No Plan Patient : Yes service: No Current occupational status: employed Current occupational exposures/hazards: No Gender identity: Female Cognitive needs: No Hearing needs: No Vision needs: Yes (glasses) Physical Exam Vital Signs: Vital Signs: Last Vital Signs Temp 98.6 F 04/10/24 20:20 Pulse 85 04/10/24 20:20 Resp 118 H 04/10/24 20:20 BP 121/62 04/10/24 20:20 Pulse Ox 97 04/10/24 20:20 O2 Del Method Room Air 04/10/24 20:20 BMI result Body Mass Index 21.1 Const: Other: Alert Orientation/consciousness: oriented to time and patient oriented x3 Resp: Effort & Inspection: normal respiratory effort Cardio: Other: Normal peripheral perfusion Skin: Other: Warm dry no rash Neuro: General: oriented to time, patient oriented x3, no focal motor deficits and CN's II-XI intact bilaterally Psych: Other: Cooperative Course Course Course Narrative: This is an RME performed by Misael Lane CNP: Additional HPI, ROS, PE not included below will be deferred to primary provider. Patient is a 24-year-old female presents emergency department for evaluation she is a LMP 02/27/2024 endorsing she is currently 6 weeks , awaiting initial OB appointment/ultrasound. She reports that today she began experiencing pain diffusely across her lower abdomen not in 1 area particularly worse than another, diffuse lower back pain with menstrual type bleeding. Has changed a sanitary napkin twice today. Plan: Serum labs including hCG, pelvic ultrasound, Rh factor, urinalysis Medical Decision Making Medical Decision Making MDM Narrative: The patient is a 24-year-old female with LMP 02/27/2024, currently 6 weeks , presenting with vaginal bleeding since earlier today. Patient states she has gone through 2 pads since the bleeding started this morning. Associated lower abdominal cramping. Patient has her 1st covering machine operator helper appointment with [facility] the beginning of April. Problem: 1st History: Per patient I have considered the following differential diagnoses: Ectopic , threatened , subchorionic hemorrhage, symptoms of early Plan: Screening labs including type and screen with Rh factor and a transvaginal ultrasound were obtained from triage. She is Rh positive, on the ultrasound, there was evidence of a subchorionic hemorrhage. I have advised the patient that she needs to call her covering machine operator helper tomorrow that they are going to want to monitor her closely in the way of her hCG levels and additional ultrasounds. Sending with the return precautions for progression of her bleeding. I have independently reviewed the following tests: Labs: No leukocytosis, not anemic, no electrolyte abnormality, O positive Transvaginal ultrasound:Findings: Single live intrauterine . CRL: 0.3 cm. EGA: 6 weeks and 0 days. CRISTINA: 12/04/24. Previously established gestational age: N/A. Normal yolk sac. FHR: 112 bpm. Moderate-sized subchorionic bleed measuring 2.1 x 1.6 x 3.5 cm. Normal uterus and ovaries. Left corpus luteum. No free fluid. Impression: Single live intrauterine estimated at 6 weeks and 0 days gestational age by today's ultrasound criteria. Moderate-sized subchorionic hemorrhage. This document has been electronically signed by: Racquel Escalona MD on 04/10/2024 17:01:41 Lab Data 04/10/24 15:53 04/10/24 15:53 Labs: Lab Results 04/10/24 Range/Units 15:53 WBC 10.3 (4.8-10.8) X10*3/uL RBC 4.41 (4.20-5.50) X10*6/uL Hgb 13.0 (12.0-16.0) g/dl Hct 38.8 (37.0-47.0) % MCV 88.0 (80.0-98.0) fL MCH 29.5 (27.0-33.0) pg MCHC 33.5 (31.0-35.0) g/dl RDW 11.9 (11.0-16.0) % Plt Count 394 (160-400) X10*3/uL MPV 9.2 L (9.4-12.3) fL Immature Gran % (Auto) 0.6 H (0.0-0.4) % Neut % (Auto) 67.5 (45-73) % Lymph % (Auto) 23.2 (20-40) % Stanly % (Auto) 7.4 (2-11) % Eos % (Auto) 0.8 (0-4) % Baso % (Auto) 0.5 (0-2) % Lymph # (Auto) 2.4 (1.2-4.9) X10*3/uL Stanly # (Auto) 0.8 (0.1-1.2) X10*3/uL Eos # (Auto) 0.1 (0.0-0.4) X10*3/uL Baso # (Auto) 0.1 (0.0-0.2) X10*3/uL Abs Immat Gran (auto) 0.06 H (0.00-0.03) X10*3/uL Absolute Neuts (auto) 6.9 (2.0-8.3) x10*3/uL Absolute Nucleated RBC 0.000 (0.0-0.012) X10*3/uL Nucleated RBC % (auto) 0.0 (0.0-0.2) /100WBC Sodium 136 (135-145) mmol/L Potassium 3.9 (3.3-5.1) mmol/L Chloride 104 (96-108) mmol/L Carbon Dioxide 23 (22-29) mmol/L Anion Gap 13 (12-20) BUN 13 (9-16) mg/dL Creatinine 0.67 (0.5-1.4) mg/dL Estim Creat Clear Calc 98.5 Estimated GFR > 60 Random Glucose 100 (60-115) mg/dL Calcium 9.6 (8.4-10.2) mg/dL Total Bilirubin 0.5 (0.0-1.0) mg/dL AST 21 (5-31) U/L ALT 10 (0-31) U/L Alkaline Phosphatase 40 (39-117) U/L Total Protein 8.1 H (6.5-8.0) g/dL Albumin 4.5 (3.5-5.0) g/dL Beta HCG, Quant 97950 mIU/mL Blood Type O Positive Discharge Plan Discharge Clinical Impression: Subchorionic hemorrhage Patient Disposition: Home, Self-Care Additional Instructions: The ultrasound revealed that your carrying a single live intrauterine that measures approximately 6 weeks old. However, there is bleeding from some of the tissues that we will make up the baby's placenta. You need to call your covering machine operator helper tomorrow for follow up. They will want to monitor your blood levels of hCG and likely repeat ultrasounds. Return precautions for onset of heavy bleeding, soaking through a pad every hour. If this occurs seek medical attention. Prescriptions: No Action mlfdwriflw-csrnxghrpjnng-jfhd [Fioricet] 50-300-40 mg capsule 1 cap PO Q6H PRN (Reason: headache) Qty: 8 0RF cholecalciferol (vitamin D3) 50 mcg (2,000 unit) capsule 50 mcg PO DAILY 90 Days Qty: 90 1RF sumatriptan succinate 50 mg tablet See Rx Instructions PO .COMPLEX Qty: 20 2RF Rx Instructions: TAKE 1 TABLET AT ONSET OF HEADACHE; IF NO RELIEF MAY TAKE SECOND DOSE AFTER AT LEAST 2 HOURS. MAXIMUM 3 TABLETS/ 24 HOURS PO. amitriptyline 10 mg tablet 10 mg PO BEDTIME Qty: 90 1RF ibuprofen 600 mg tablet 600 mg PO Q6H PRN (Reason: pain) Qty: 60 0RF Stand Alone Forms: Work/School Release Print Language: Kenyan
[2024-04-10 15:15] VITALS: BP 129/89; PULSE 99; RESP 18; TEMP 36.6; O2SAT 96; BMI 21.1
[2024-04-10 15:58] LABS: MANUAL DIFF FLAG NO
[2024-04-10 15:59] LABS: Basophils Absolute Auto 0.1 X10*3/uL (0.0-0.2); Basophils Percent Auto 0.5 % (0-2); Eosinophils Absolute Auto 0.1 X10*3/uL (0.0-0.4); Eosinophils Percent Auto 0.8 % (0-4); Hematocrit 38.8 % (37.0-47.0); Imm Gran Abs Auto 0.06 X10*3/uL (0.00-0.03); Imm Gran Pct Auto 0.6 % (0.0-0.4); Lymphocytes Absolute Auto 2.4 X10*3/uL (1.2-4.9); Lymphocytes Percent Auto 23.2 % (20-40); Mean Corpuscular HGB Conc 33.5 g/dl (31.0-35.0); Mean Corpuscular Hemoglobin 29.5 pg (27.0-33.0); Mean Platelet Volume 9.2 fL (9.4-12.3); Monocytes Absolute Auto 0.8 X10*3/uL (0.1-1.2); Monocytes Percent Auto 7.4 % (2-11); Neutrophils Absolute Auto 6.9 x10*3/uL (2.0-8.3); Neutrophils Percent Auto 67.5 % (45-73); Platelet Count 394 X10*3/uL (160-400); Red Blood Count 4.41 X10*6/uL (4.20-5.50); Red Cell Distribution Width 11.9 % (11.0-16.0); White Blood Count 10.3 X10*3/uL (4.8-10.8)
[2024-04-10 16:35] LABS: Alanine Aminotransferase 10 U/L (0-31); Albumin Level 4.5 g/dL (3.5-5.0); Anion Gap 13 (12-20); Aspartate Amino Transferase 21 U/L (5-31); Bilirubin Total 0.5 mg/dL (0.0-1.0); Blood Urea Nitrogen 13 mg/dL (9-16); Calcium 9.6 mg/dL (8.4-10.2); Carbon Dioxide 23 mmol/L (22-29); Chloride 104 mmol/L (96-108); Creatinine Clr Calc Pharmacy 98.5; Estimated Glomerular Filt Rate > 60; Glucose Random 100 mg/dL (60-115); Potassium 3.9 mmol/L (3.3-5.1); Sodium 136 mmol/L (135-145); Total Protein 8.1 g/dL (6.5-8.0)
[2024-04-10 16:51] LABS: Alkaline Phosphatase 40 U/L (39-117); HCG Quantitative 38795 mIU/mL
[2024-04-10 20:20] VITALS: BP 121/62; PULSE 85; RESP 118; TEMP 37; O2SAT 97
[2024-04-10 21:10] VITALS: BP 121/62; PULSE 85; RESP 118; TEMP 37; O2SAT 97
== END 2024-04-10 21:14 | disposition home or self-care (01) ==
PROVIDERS: Nurse Practitioner Family; Emergency Provider Emergency Medicine; PCP Internal Medicine
DX: O20.8 Other hemorrhage in early pregnancy (principal); R10.2 Pelvic and perineal pain; Z3A.01 Less than 8 weeks gestation of pregnancy; Z79.899 Other long term (current) drug therapy
CPT/HCPCS: 36415; 76801; 76817; 80053; 84702; 85025; 86900; 86901; 99284